=== PATIENT | female | born 1965 | race Caucasian/White ===

== ENCOUNTER 2016-10-07 19:45 | Inpatient (IN) | payer MEDICARE, OTHER ==
--- NOTE | ~2016-10-07 | HP ---
History And Physical [facility] [address] [place]. [address] NAME: JUAN MCCLOUD : 67 STATUS : ADM IN [facility]#: [id number] AGE: 51 ADM/REG DATE : 10/08/16 MR#: [id number] REPORT SERV DATE: 10/08/16 DICTATED BY: JASMYN CARVER DATE: 10/08/16 REPORT STATUS : Draft TRANSCRIBED BY: MODArvin DATE: 10/08/16 DATE OF ADMISSION: 10/08/2016 POINT OF ENTRY: [facility] Emergency Department. PRIMARY ETHYL BLENDER: Paul Duncan M.D. CHIEF COMPLAINT: Elevated blood sugar, not feeling well. 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 The patient states that since Monday night she has generally felt ill and unwell. When pressed for specifics, she states that she has felt weak with nausea, anorexia as well as occasional episodes of right-sided chest pain. The patient states that she has not eaten much over the past two days, has not checked her blood sugars over that same time period, and also has not administered any of her home insulin during the same time period, and she states that she slept most of the preceding 48 hours on and off in her recliner. When home health came to check on her this afternoon they noted her blood sugar was 565. The home health nurse administered 45 units of insulin and she presented to the emergency department. Initial evaluation in the emergency department notable for a repeat blood sugar of 285, evidence of acute on chronic kidney disease, a creatinine of 2.46. She does have small acetones in her blood as well as trace ketones in her urine as well as evidence of urinary tract infection. The patient was subsequently admitted to the Hospitalist Service for further evaluation and management. REVIEW OF SYSTEMS: Comprehensive review of systems otherwise negative unless listed in history of present illness. PREVIOUS MEDICAL HISTORY: 1. Poorly controlled insulin-dependent diabetes mellitus type 2 with associated diabetic nephropathy and retinopathy. Recent hemoglobin A1c of 8.9. 2. Chronic kidney disease, stage 3, baseline creatinine 1.3 to 1.5. 3. Hypertension. 4. Hyperlipidemia. 5. Hypothyroidism. 6. Morbid obesity. 7. Gastroesophageal reflux disease. 8. Chronic diastolic congestive heart failure. History And Physical [address] [place]. [address] NAME: JUAN MCCLOUD : 67 STATUS : ADM IN PAT#: [id number] AGE: 51 ADM/REG DATE : 10/08/16 MR#: [id number] REPORT SERV DATE: 10/08/16 DICTATED BY: JASMYN CARVER DATE: 10/08/16 REPORT STATUS : Draft TRANSCRIBED BY: DAMARI DATE: 10/08/16 9. Peripheral vascular disease. 10.Chronic anemia. 11.Lower extremity diabetic foot ulcers with osteomyelitis status post left transmetatarsal amputation. SURGICAL HISTORY: 1. Cholecystectomy. 2. Right shoulder surgery. 3. Bilateral carpal tunnel. 4. . 5. Left transmetatarsal amputation. ALLERGIES: NO KNOWN DRUG ALLERGIES. HOME MEDICATIONS: 1. Amitriptyline 25 mg q.h.s. 2. Fioricet one to two tabs b.i.d. p.r.n. 3. Vitamin C 500 mg b.i.d. 4. Aspirin 81 mg daily. 5. Baclofen 10 mg b.i.d. 6. Diltiazem ER 120 mg daily. 7. Vitamin D 50,000 units monthly. 8. Neurontin 300 mg b.i.d. 9. Vascepa 2 g b.i.d. 10.Lantus 50 units t.i.d. 11.Humalog 42 units t.i.d. 12.Humalog sliding scale. 13.Imdur 60 mg b.i.d. 14.Levothyroxine 88 mcg daily. 15.Losartan 100 mg daily. 16.Perphenazine 2 mg q.h.s. 17.Zoloft 50 mg daily. 18.Aldactone 25 mg q.h.s. 19.Vitamin E 400 units b.i.d. 20.AZO Yeast over the counter b.i.d. SOCIAL HISTORY: She denies any tobacco, alcohol, or illicits. FAMILY MEDICAL HISTORY: Notable for diabetes, heart disease, stroke, and cancer in immediate family members. LABS AND IMAGIN. White count is 10.9, hemoglobin is 12.9, hematocrit is 38.0, platelet count is 291, and INR is 1.1. 2. Sodium is 132, potassium 3.8, chloride 97, carbon dioxide 19, BUN 52, creatinine 2.46, glucose is 285, calcium is 9.6, magnesium is 2.7. Anion gap is 16. 3. Troponin less than 0.02. History And Physical [address] [address] NAME: JUAN MCCLOUD : 67 STATUS : ADM IN PAT#: [id number] AGE: 51 ADM/REG DATE : 10/08/16 MR#: [id number] REPORT SERV DATE: 10/08/16 DICTATED BY: JASMYN CARVER DATE: 10/08/16 REPORT STATUS : Draft TRANSCRIBED BY: DAMARI DATE: 10/08/16 4. Serum acetone is positive. 5. Urinalysis: Spec gravity is 1.018 turbid in appearance, large leukocyte esterase, greater than 182 white blood cell with 13 red blood cells per high-powered field with many bacteria and white blood cell clumps with trace ketones with 9 epithelial cells. 6. Chest x-ray per my review shows no acute cardiopulmonary abnormality. 7. EKG per my review shows normal sinus rhythm with no evidence of any acute ischemia or infarction. 8. ABG; pH is 7.49, pCO2 is 23, PO2 is 104, bicarb is 17, and saturating 90% on room air. PHYSICAL EXAMINATION: VITAL SIGNS: Temperature is 98.0 degrees Fahrenheit, pulse is 100, respirations 18, saturating 100% on room air, and blood pressure 120/65. On recheck, blood pressure is now 168/74, pulse of 88. GENERAL: The patient is awake and alert, in no acute distress. Resting comfortably in bed. She is a chronically ill-appearing female who is in no distress, but does appear somewhat ill. HEENT: Atraumatic and normocephalic. Dry mucous membranes. Pupils are equal, round, and reactive. No scleral icterus. NECK: No jugular venous distention. No carotid bruits. CARDIAC: Regular rate and rhythm. No murmurs, rubs, or gallops. Normal S1 and S2. LUNGS: Clear to auscultation bilaterally. No wheezes, rhonchi, or crackles. ABDOMEN: Obese, soft, nontender, and nondistended with good bowel sounds. No rebound, guarding, or rigidity. EXTREMITIES: Status post left transmetatarsal amputation with a chronic left foot wound that does not appear to have any active evidence of infection. SKIN: Warm and dry. PSYCH: Affect is withdrawn and blunted. NEURO: Alert and oriented x3. Cranial nerves 2 through 12 grossly intact. Speech is normal. Gait not assessed. ASSESSMENT AND PLAN: Ms Mccloud is a 51-year-old female with history of poorly controlled insulin-dependent diabetes mellitus type 2, who presents with a two-day history of not feeling well as well as noncompliance with her diabetic insulin regimen and found to have evidence of hyperglycemia as well as evidence of diabetic ketoacidosis. PROBLEM LIST: 1. Diabetic ketoacidosis. 2. Acute kidney injury on chronic kidney disease, stage 3. 3. Urinary tract infection. 4. Hyponatremia. 5. Chest pain. PLAN: 1. DKA. The patient meets criteria with elevated blood sugars as well as evidence of anion gap, urinary ketones as well as serum bicarb of 19, with an ABG bicarb of 17. We will place her on IV fluids as well as an insulin drip. Consult community nutrition educator for assistance as the patient readily admits to noncompliance with her scheduled insulin History And Physical [address] [address] NAME: JUAN MCCLOUD : 67 STATUS : ADM IN [facility]#: [id number] AGE: 51 ADM/REG DATE : 10/08/16 MR#: [id number] REPORT SERV DATE: 10/08/16 DICTATED BY: JASMYN CARVER DATE: 10/08/16 REPORT STATUS : Draft TRANSCRIBED BY: MODL DATE: 10/08/16 regimen. 2. Acute kidney injury on chronic kidney disease, stage 3 likely related to diabetic ketoacidosis as well as poor oral intake. Provide aggressive IV fluid hydration. Holding nephrotoxic medications including losartan and Aldactone. Checking urine lytes. 3. Urinary tract infection. Place the patient on IV Rocephin. Follow up urine culture. 4. Chest pain, appears to be atypical in nature. We will trend out cardiac enzymes. 5. DVT prophylaxis. Heparin subcu. CODE STATUS: The patient wished to be full code. JCB/MODL Jasmyn Carver MD / [id number] CC: Andrew Izquierdo DO Michael Reeves, M.D.
--- NOTE | ~2016-10-07 | DS ---
Discharge Summary [facility] [address] [place]. [address] NAME: JUAN SOLIS : 67 STATUS : DIS IN PAT#: [id number] AGE: 51 ADM/REG DATE : 10/08/16 MR#: [id number] REPORT SERV DATE: 10/13/16 DICTATED BY: JONATHAN LEBLANC DATE: 10/12/16 REPORT STATUS : Draft TRANSCRIBED BY: MODL DATE: 10/12/16 ADMISSION DATE: 10/08/2016 DISCHARGE DATE: 10/12/2016 DISCHARGE DIAGNOSES: Include: 1. Diabetic ketoacidosis, also most recent hemoglobin A1c 8.9. 2. Acute kidney injury on chronic kidney disease, resolved with most recent creatinine 1.24. 3. Urinary tract infection present on admission with culture growing Klebsiella that is treated. 4. Hypertension. 5. Hypothyroidism, most recent TSH 1.330. 6. Constipation. DISCHARGE MEDICATIONS: As follows; amitriptyline 25 mg at bedtime, vitamin C 500 mg twice a day, aspirin 81 mg daily, baclofen 10 mg twice a day, diltiazem ER 120 mg daily, vitamin D 50,000 units p.o. every 30 days, gabapentin 300 mg twice a day, Synthroid 88 mcg daily, Imdur 60 mg twice a day, Zoloft 50 mg daily, Aldactone 25 mg at bedtime, vitamin E 400 units p.o. twice a day, losartan 50 mg p.o. daily, Vascepa 1 g 2 caps p.o. twice a day, Fioricet 1 2 tablets twice a day p.r.n. for headache, Levemir insulin 50 units subcutaneously twice a day, and NovoLog insulin 28 units subcutaneously with meals. HISTORY OF PRESENT ILLNESS: This 51-year-old female with history of poorly controlled insulin-dependent diabetes, who presented with very elevated blood sugars and not feeling well. Please see initial H and P of Dr. Kei King as the patient admitted to the Hospitalist Service for further evaluation and treatment. She was found to be in DKA initially. HOSPITAL COURSE: The patient was given aggressive hydration and aggressive insulin therapy and began to have some improvement in her acidosis, her hyperglycemia, and her overall condition continued to improve. She initially had a urinalysis done as well that was abnormal on admission and this grew Klebsiella bacteria, which was treated with antibiotic Rocephin and Ancef during this admission. With numerous adjustments to her insulin, we achieved better control of her blood sugars and in review of her history in regard to her hemoglobin A1c prior in November of 2015 was 12.6, she is now down to 8.9. Have established an outpatient plan to follow up with her primary care in 10-14 days and to follow up with her traffic engineering director, Dr. Duncan in three to four weeks, which she is in agreement with, and she will be discharging home on the above medication regimen. Home Health will resume through [facility] after discharge for continued dressing changes on her prior diabetic foot ulcers in the left lower extremity. Please note greater than 30 minutes was spent on this discharge for medication teaching, followup planning, and further disposition. Discharge Summary [place] [address] [facility] [place]. [address] NAME: JUAN SOLIS : 67 STATUS : DIS IN [facility]#: [id number] AGE: 51 ADM/REG DATE : 10/08/16 MR#: [id number] REPORT SERV DATE: 10/13/16 DICTATED BY: JONATHAN LEBLANC DATE: 10/12/16 REPORT STATUS : Draft TRANSCRIBED BY: DAMARI DATE: 10/12/16 ROBIN/DAMARI Jonathan Leblanc NP / [id number] CC: Andrew Carrington DO
[~2016-10-07 19:45] MED LIST: ALIGN4 MG PO; ARANESP IV; ARANESP40 IV; ASAB PO; AUG500 PO; AZO YEAST PLUS PO; BUM1 PO; BUM2 PO; CATARACTIVE OPH; COZ50 PO; COZAAR100 MG PO; DIAM250B PO; FIORINALC PO; GLUCOPHAGE1000 MG PO; HALF81 PO; HUMALOG SC; HUMALOGPEN SC; IMDUR30 PO; IMDUR60 PO; IRON325 MG PO; L20 PO; LANTUS SC; LEVEMFLXPN; LEVEMFLXPN SC; LEVEMIR SC; LEVOTHYROXIN25 MCG PO; LEVOTHYROXIN50 MCG PO; LEVOTHYROXIN75 MCG PO; LEVOTHYROXIN88 MCG PO; LIOR10 PO; LIPITOR20 PO; MOBIC7.5 PO; NEUR300 PO; NOVOLOG SC; NOVOPEN SC; NOVOPENMIX; PCET PO; PRAVACHOL40 MG PO; PRAVACHOL80 MG PO; PRILOSEC OTC20 MG; PROBIOTIC; REG PO; SPIRO50 PO; TAZTIA X4 PO; TRADJENTA5 MG PO; TRIAVIL 2/25 TA1 TAB PO; VALTURN1 PO; VALTURNA PO; VASCEPA PO; VASCEPA1 GM PO; VITC500 PO; VITE PO; VITE200U PO; XALAT OPH; ZANTAC 150 PO; ZANTAC150 MG PO; ZOL50 PO; ZOLOFT25 MG PO
[2016-10-07 22:29] LABS: BASOPHILS 0.3 %; BASOPHILS ABSOLUTE 0.03 10/3/uL (0.0-0.16); EOSINOPHILS 1.8 %; HEMOGLOBIN 12.9 g/dL (12.0-16.0); IMMATURE GRANULOCYTES 0.3 %; IMMATURE GRANULOCYTES ABSOLUTE 0.03 10/3/uL (0.0-0.11); LYMPHOCYTES 21.1 %; LYMPHOCYTES ABSOLUTE 2.31 10/3/uL (0.67-4.30); MEAN CORPUS HGB CONC 33.9 g/dL (32.0-36.0); MEAN CORPUSCULAR HEMOGLOB 29.1 pg (26.0-34.0); MEAN CORPUSCULAR VOLUME 85.6 fL (80-100); MEAN PLATELET VOLUME 10.7 fL (9.2-13.0); MONOCYTES 4.8 %; MONOCYTES ABSOLUTE 0.53 10/3/uL (0.21-1.20); NEUTROPHILS 71.7 %; NEUTROPHILS ABSOLUTE 7.83 10/3/uL (2.02-8.40); PLATELET COUNT 291 10/3/uL (150-400); RBC DISTRIBUTION WIDTH 12.9 % (12.0-16.0); RED CELL COUNT 4.44 10/6/uL (4.0-5.6); WHITE BLOOD CELLS 10.9 10/3/uL (4.5-10.5)
[2016-10-07 22:30] LABS: MANUAL DIFF NO %
[2016-10-07 22:32] LABS: ASCORBIC ACID (UR NOT ORDER) NEG (NEG); BILIRUBIN, URINE NEGATIVE (NEG); ER URINALYSIS TAT 0 Hrs 09 Mins; KETONE, URINE TRACE MG/DL (NEG); LEUKOCYTE ESTERASE(NOT OR LARGE (NEG); NITRITE (URINE) NEG (NEG); WBC (NOT ORDERED) (RFLEX) > 182 (0-5)
[2016-10-07 22:34] LABS: ACETONE SMALL
[2016-10-07 22:36] LABS: INTERNATIONAL NORMAL RATI 1.1 UNITS (-); PARTIAL THROMBO TIME 27.6 SEC (22.5-37.2); PROTIME (NOT ORD) 13.9 SEC (12.0-14.5)
[2016-10-07 22:46] LABS: BUN (BLOOD UREA NITROGEN) 52 MG/DL (6-23); CHEST PAIN PROFILE TAT 0 Hrs 23 Mins; CHLORIDE, SERUM 97 MMOL/L (96-112); CO2 (CARBON DIOXIDE) 19 MMOL/L (24-34); POTASSIUM, SERUM 3.8 MMOL/L (3.5-5.3); SODIUM, SERUM 132 MMOL/L (135-148); TROPONIN I <0.02 NG/ML (<0.05)
[2016-10-07 22:47] LABS: CALCIUM, SERUM 9.6 MG/DL (8.5-10.4); CREATININE 2.46 MG/DL (0.55-1.02); GFR AFRICAN AMERICAN 26 ML/MIN (>=60); GFR NON AFRICAN AMERICAN 22 ML/MIN (>=60); GLUCOSE, SERUM 285 MG/DL (60-99)
[2016-10-07 23:52] LABS: ALLENS TEST Pos; BE (BASE EXCESS) -4.3 MEQ/L (0 +/- 2.5); CARBOXYHEMOGLOBIN 0.7 % (0-3); HCO3 (ACTUAL BICARBONATE) 17.3 MEQ/L (23-27); HEMOBLOGIN CONTENT 12.1 G/DL (12-16); INSTRUMENT SERIAL # 8087; O2 CONTENT 16.7 VOL% (18-24); OPERATOR ID 17589; PCO2 (CO2 TENSION) 23 MMHG (35-45); PO2 (O2 TENSION) 104 MMHG (79-93); SAMPLE Arterial; pH 7.49 (7.37-7.43)
[2016-10-08] MEDS ORDERED: NEUR300 PO (00:28)
[2016-10-08] MEDS ORDERED: SYN88 PO (00:28)
[2016-10-08] MEDS ORDERED: TAZTIA X4 PO (00:29)
[2016-10-08] MEDS ORDERED: COZAAR100 MG PO (00:29)
[2016-10-08] MEDS ORDERED: VASCEPA1 GM PO (00:29)
[2016-10-08] MEDS ORDERED: IMDUR60 PO (00:30)
[2016-10-08] MEDS ORDERED: FIORICET 50-301 EACH PO (00:31)
[2016-10-08] MEDS ORDERED: LIOR10 PO (00:31)
[2016-10-08] MEDS ORDERED: AMIT25 PO (00:31)
[2016-10-08] MEDS ORDERED: HALF81 PO (00:32)
[2016-10-08] MEDS ORDERED: ZOL50 PO (00:32)
[2016-10-08] MEDS ORDERED: VITC500 PO (00:32)
[2016-10-08] MEDS ORDERED: PERPHENAZINE4 MG PO (00:32)
[2016-10-08] MEDS ORDERED: [UNRECOGNIZED DRUG - OTHER] PO (00:33)
[2016-10-08] MEDS ORDERED: VITE PO (00:33)
[2016-10-08] MEDS ORDERED: VITD PO (00:34)
[2016-10-08] MEDS ORDERED: HUMALOGPEN SC ×2 (00:34→00:36)
[2016-10-08] MEDS ORDERED: SPIRO25 PO (00:34)
[2016-10-08] MEDS ORDERED: LANTUSCART SC (00:37)
[2016-10-08 07:12] LABS: BUN (BLOOD UREA NITROGEN) 51 MG/DL (6-23); CHLORIDE, SERUM 103 MMOL/L (96-112); CO2 (CARBON DIOXIDE) 21 MMOL/L (24-34); CREATININE 2.06 MG/DL (0.55-1.02); GFR AFRICAN AMERICAN 32 ML/MIN (>=60); GFR NON AFRICAN AMERICAN 27 ML/MIN (>=60); POTASSIUM, SERUM 3.1 MMOL/L (3.5-5.3); TROPONIN I <0.02 NG/ML (<0.05)
[2016-10-08 07:13] LABS: CALCIUM, SERUM 8.5 MG/DL (8.5-10.4); CK-MB 1.7 NG/ML; CPK 50 U/L (0-200); GLUCOSE, SERUM 153 MG/DL (60-99); SODIUM, SERUM 139 MMOL/L (135-148)
[2016-10-08 10:44] LABS: BUN (BLOOD UREA NITROGEN) 50 MG/DL (6-23); CALCIUM, SERUM 8.6 MG/DL (8.5-10.4); CHLORIDE, SERUM 105 MMOL/L (96-112); CO2 (CARBON DIOXIDE) 19 MMOL/L (24-34); CREATININE 1.97 MG/DL (0.55-1.02); GFR AFRICAN AMERICAN 34 ML/MIN (>=60); GFR NON AFRICAN AMERICAN 29 ML/MIN (>=60); GLUCOSE, SERUM 162 MG/DL (60-99); POTASSIUM, SERUM 3.5 MMOL/L (3.5-5.3); SODIUM, SERUM 139 MMOL/L (135-148)
[2016-10-08 14:59] LABS: BUN (BLOOD UREA NITROGEN) 49 MG/DL (6-23); CALCIUM, SERUM 8.5 MG/DL (8.5-10.4); CHLORIDE, SERUM 103 MMOL/L (96-112); CO2 (CARBON DIOXIDE) 22 MMOL/L (24-34); GFR AFRICAN AMERICAN 29 ML/MIN (>=60); GFR NON AFRICAN AMERICAN 25 ML/MIN (>=60); GLUCOSE, SERUM 225 MG/DL (60-99); POTASSIUM, SERUM 3.2 MMOL/L (3.5-5.3); SODIUM, SERUM 139 MMOL/L (135-148)
[2016-10-08 18:48] LABS: BUN (BLOOD UREA NITROGEN) 47 MG/DL (6-23); CALCIUM, SERUM 8.6 MG/DL (8.5-10.4); CHLORIDE, SERUM 103 MMOL/L (96-112); CO2 (CARBON DIOXIDE) 22 MMOL/L (24-34); GFR AFRICAN AMERICAN 29 ML/MIN (>=60); GFR NON AFRICAN AMERICAN 25 ML/MIN (>=60); GLUCOSE, SERUM 189 MG/DL (60-99); POTASSIUM, SERUM 3.6 MMOL/L (3.5-5.3); SODIUM, SERUM 138 MMOL/L (135-148)
[2016-10-10 04:47] LABS: BUN (BLOOD UREA NITROGEN) 30 MG/DL (6-23); CALCIUM, SERUM 8.8 MG/DL (8.5-10.4); CHLORIDE, SERUM 109 MMOL/L (96-112); CO2 (CARBON DIOXIDE) 22 MMOL/L (24-34); CREATININE 1.44 MG/DL (0.55-1.02); GFR AFRICAN AMERICAN 49 ML/MIN (>=60); GFR NON AFRICAN AMERICAN 42 ML/MIN (>=60); GLUCOSE, SERUM 141 MG/DL (60-99); POTASSIUM, SERUM 3.7 MMOL/L (3.5-5.3); SODIUM, SERUM 142 MMOL/L (135-148)
[2016-10-12 12:32] LABS: BUN (BLOOD UREA NITROGEN) 20 MG/DL (6-23); CHLORIDE, SERUM 107 MMOL/L (96-112); CO2 (CARBON DIOXIDE) 24 MMOL/L (24-34); CREATININE 1.24 MG/DL (0.55-1.02); GFR AFRICAN AMERICAN 59 ML/MIN (>=60); GFR NON AFRICAN AMERICAN 51 ML/MIN (>=60); GLUCOSE, SERUM 152 MG/DL (60-99); POTASSIUM, SERUM 4.5 MMOL/L (3.5-5.3); SODIUM, SERUM 139 MMOL/L (135-148)
[2016-10-12] MEDS ORDERED: LANTUS SC (15:56)
[2016-10-12] MEDS ORDERED: HUMALOG SC (15:57)
== END 2016-10-12 17:42 | disposition home health service (06) | DRG 638 ==
LOC: ER 19:45 → 7NO 10-08 01:31
PROVIDERS: Internal Medicine; Nurse Practitioner; Specialist
DX: E13.10 Other specified diabetes mellitus with ketoacidosis without coma (principal); N39.0 Urinary tract infection, site not specified; N17.9 Acute kidney failure, unspecified; I50.32 Chronic diastolic (congestive) heart failure; I13.0 Hypertensive heart and chronic kidney disease with heart failure and stage 1 through stage 4 chronic kidney disease, or unspecified chronic kidney disease; N18.3 Chronic kidney disease, stage 3 (moderate); Z68.41 Body mass index [BMI] 40.0-44.9, adult; N18.9 Chronic kidney disease, unspecified; E03.9 Hypothyroidism, unspecified; K59.00 Constipation, unspecified; B96.1 Klebsiella pneumoniae [K. pneumoniae] as the cause of diseases classified elsewhere; E11.621 Type 2 diabetes mellitus with foot ulcer; K21.9 Gastro-esophageal reflux disease without esophagitis; I73.9 Peripheral vascular disease, unspecified; E11.21 Type 2 diabetes mellitus with diabetic nephropathy; Z86.14 Personal history of Methicillin resistant Staphylococcus aureus infection; E11.319 Type 2 diabetes mellitus with unspecified diabetic retinopathy without macular edema; E66.01 Morbid (severe) obesity due to excess calories; D64.9 Anemia, unspecified; Z79.4 Long term (current) use of insulin; Z89.432 Acquired absence of left foot; Z90.49 Acquired absence of other specified parts of digestive tract; Z79.82 Long term (current) use of aspirin; Z83.3 Family history of diabetes mellitus; Z82.3 Family history of stroke
CPT/HCPCS: 36600; 71010; 80048; 81001; 82009; 82550; 82553; 82805; 82962; 83735; 84439; 84443; 84484; 85025; 85610; 85730; 87077; 87086; 87186; 93005; 96374; 96375; 99285; A9270-GY; J0360; J0690; J2405

== ENCOUNTER 2016-12-06 17:27 | Inpatient (IN) | payer MEDICARE, OTHER ==
--- NOTE | ~2016-12-06 | DS ---
Discharge Summary [place] [address] [place]. [address] NAME: JUAN MCCLOUD : 67 STATUS : DIS IN PAT#: [id number] AGE: 51 ADM/REG DATE : 12/07/16 MR#: [id number] REPORT SERV DATE: 12/10/16 DICTATED BY: SARAH ONEAL DATE: 12/09/16 REPORT STATUS : Draft TRANSCRIBED BY: MODArvin DATE: 12/09/16 ADMISSION DATE: 12/07/2016 DISCHARGE DATE: 12/09/2016 The patient was admitted to the Hospitalist Service. CONSULTANTS: Lyndon Arredondo M.D., General Surgery. DISCHARGE DIAGNOSES: 1. Urinary tract infection. 2. Acute kidney injury on chronic kidney disease. 3. Diabetes mellitus type 2, uncontrolled with hyperglycemia. 4. Hypotension, resolved. 5. Left foot wound transmetatarsal amputation site, followed by Dr. Arredondo. PROCEDURES: None. IMAGING AND DIAGNOSTICS: 12/06/2016 chest x-ray, PA and lateral, revealed no acute cardiopulmonary abnormality. LABORATORY STUDIES: 1. 12/09/2016: Discharge basic metabolic panel revealed sodium 141, potassium 4.8, chloride 111, CO2 of 21, BUN 26, creatinine 1.59, GFR 37, glucose 200, and calcium 8.8. 2. 12/09/2016: CBC revealed a white count of 6.1, hemoglobin 10.4, hematocrit 32.5, and platelets 237. 3. Hemoglobin A1c 14.4. 4. Urinalysis on 12/06/2016 revealed 100 proteins, greater than 500 glucose, moderate blood, large leukocyte esterase. The microscopic showed 50 rbc's, greater than 182 wbc's, many wbc clumps, and many bacteria. 5. Urine culture revealed approximately 100,000 per mL of urine. Organism identified, Klebsiella pneumoniae. HISTORY OF PRESENT ILLNESS: For complete history, please refer to admission H and P by Dr. Louie Head on 12/07/2016. Briefly, Ms. Mccloud is a 51-year-old obese female who was sent to the emergency room by her home health nurse secondary to a blood glucose reading of 570 at her home. Ms. Mccloud in the emergency room admitted that she had been having decreased appetite, lightheadedness, and some orthostatic symptoms for the few days prior to her admission. The hospitalists were asked to admit Ms. Mccloud for further evaluation and treatment. HOSPITAL COURSE: Ms. Mccloud was admitted to a med/surg telemetry bed. She was given IV fluids and covered initially with IV Zosyn and IV vancomycin secondary to her history of Pseudomonas and MRSA. She was provided with her home insulin, basal insulin, and sliding scale NovoLog for correction at mealtime. A Wound Care consult was requested with the wound care nurse initially; however, after I assessed Ms. Mccloud's left foot, I asked Dr. Arredondo to come see her as she is followed by him every two weeks at the wound care center. Upon Discharge Summary [address] [address] NAME: JUAN MCCLOUD : 67 STATUS : DIS IN [facility]#: [id number] AGE: 51 ADM/REG DATE : 12/07/16 MR#: [id number] REPORT SERV DATE: 12/10/16 DICTATED BY: SARAH ONEAL DATE: 12/09/16 REPORT STATUS : Draft TRANSCRIBED BY: DAMARI DATE: 12/09/16 admission, Ms. Mccloud's home medications were continued with the exception of her spironolactone and her losartan as she had an initial creatinine of 2.72 in the emergency room. Her hypotension resolved; however, she remained orthostatic with a blood pressure lying of 131/61, sitting 135/58, and standing 95/51. Her left foot TMA site had a large scab that was oozing scant amount of serosanguineous drainage. There was erythema around the entire TMA site and she did have tenderness to the plantar surface upon palpation. Her vital signs were stable. Blood pressure 134/64, O2 saturation was 96% on 2 L, and the urine culture was pending. She was continued on IV antibiotics and IV normal saline. On 12/08/2016, she was seen by the nurses educator who reinforced her need for continued blood glucose monitoring and taking her insulin on a regular basis. The patient had complaints of poor appetite, just not being hungry, so therefore, she was not taking any of her insulin. On 12/08/2016, she was in no acute distress, denied any symptoms. She was voiding without difficulty, had a bowel movement, and her creatinine was coming down nicely; on this date, it was 1.81. Her blood glucose in the morning was 170, which was responding well to her insulin after levels of 211, 329, 316, and 361 the prior day. Blood pressure was in the 130s systolically without her losartan. Her A1c came back at 14.4 on this date. Mealtime insulin was added to her insulin regimen and sliding scale was decreased to a level 2 from level 3. Her IV fluids were continued at 50 mL/h. On 12/09/2016, she was no longer orthostatic. Her vital signs were, lying 143/64, pulse 68, sitting 145/67 with a pulse of 73 and standing blood pressure was 140/61, pulse was 86. Her urine culture came back with Klebsiella. She remained asymptomatic. Her IV antibiotics were discontinued and she was changed to Duricef 500 mg p.o. b.i.d. to begin tomorrow on 12/10/2016 as she received her IV vancomycin and Zosyn today earlier. With no new complaints and basically stable status and her creatinine coming down to 1.59 early this morning, her IV fluids were discontinued. Her blood sugars today this morning before breakfast [address] and at lunchtime 177. Dr. Arredondo did recommend surgical sandal/shoe for both feet for Ms. Mccloud. He also recommended wound care to the left foot TMA site and Mepilex to the right foot with Tubigrips bilaterally and moisture cream to both of her feet. Therefore, with no symptoms and vital signs stable and home healthcare already arranged, it was felt that Ms. Mccloud could be discharged home safely on this date. Therefore, on the evening of 12/09/2016, she was in fact discharged home with [facility] to follow. DISCHARGE INSTRUCTIONS: 1. Diet: An 1800-calorie ADA diet is recommended. 2. Activity as tolerated with no weightbearing to the left lower extremity per Dr. Arredondo. Ms. Mccloud does have a knee walker at home as well as a wheelchair. DISCHARGE MEDICATIONS: 1. Elavil 25 mg p.o. daily at bedtime. 2. Lipitor 80 mg p.o. daily at bedtime. 3. Baclofen 10 mg p.o. b.i.d. 4. Diltiazem ER 120 mg p.o. b.i.d. 5. Zantac 150 mg p.o. daily. 6. Neurontin 300 mg p.o. b.i.d. 7. Lantus 50 units subcu b.i.d. Discharge Summary [address] [address] NAME: JUAN MCCLOUD : 67 STATUS : DIS IN PAT#: [id number] AGE: 51 ADM/REG DATE : 12/07/16 MR#: [id number] REPORT SERV DATE: 12/10/16 DICTATED BY: SARAH ONEAL DATE: 12/09/16 REPORT STATUS : Draft TRANSCRIBED BY: DAMRAI DATE: 12/09/16 8. Imdur 60 mg p.o. b.i.d. 9. Synthroid 88 mcg p.o. daily, 30 minutes before breakfast. 10.Perphenazine 4 mg p.o. daily at bedtime. 11.Zoloft 50 mg p.o. daily. 12.Losartan 100 mg p.o. daily. 13.Fioricet 1-2 tabs p.o. p.r.n. headache. 14.Vitamin C 500 mg p.o. b.i.d. 15.Vascepa 1 g p.o. daily. 16.Duricef 500 mg p.o. b.i.d. for two more days, prescription provided. OTHER DISCHARGE INSTRUCTIONS: Include Ms. Mccloud will follow up with her primary care provider, Dr. Joo Reza, in seven to ten days. I have encouraged Ms. Mccloud to discuss the possibility of gastroparesis with her primary care provider and recommend further outpatient testing for this. Again, she is discharged home today with [facility] for medicine management, diabetes education, and reinforcement of taking her insulin as prescribed. I have also instructed the patient to keep a blood pressure diary and take it with her to her followup appointment with Dr. Reza. In addition, I have asked Ms. Mccloud to have lab work done at her followup appointment with Dr. Reza in seven to ten days. A prescription is provided for a basic metabolic panel to follow up on her acute kidney injury with chronic kidney disease. FRANKLIN/DAMARI Faye Oneal, [facility]- / [id number] CC: Andrew Carrington DO John McCarley, M.D.
--- NOTE | ~2016-12-06 | HP ---
History And Physical [address] [place]. [address] NAME: JUAN SOLIS : 67 STATUS : ADM IN [facility]#: [id number] AGE: 51 ADM/REG DATE : 12/07/16 MR#: [id number] REPORT SERV DATE: 12/07/16 DICTATED BY: KHUSHBU MARQUEZ DATE: 12/07/16 REPORT STATUS : Draft TRANSCRIBED BY: MODL DATE: 12/07/16 DATE OF ADMISSION: 12/07/2016 CHIEF COMPLAINT: A 51-year-old female with chronic poorly controlled diabetes, now presenting with evidence of urinary tract infection and hypotension. HISTORY OF PRESENT ILLNESS: The patient's history was obtained through an interview with the patient, coupled with review of [facility] medical records. The patient states that for a few days she has been having orthostatic symptoms, decreased appetite, and lightheadedness. She admits that she has felt so ill that she has not been taking her insulin regularly or checking her blood sugars. [facility] came to visit her today and noticed a blood sugar of 570 directing her to come to the emergency department. She does have chronic left foot pain related to an ulceration from a stump from previous amputation, it has an aching quality discomfort, 5/10 severity. No dysuria. No urinary frequency. No diarrhea. No shortness of breath. No chest pain. No cough. No fevers or chills. No confusion. REVIEW OF SYSTEMS: Otherwise, a 14-point review of systems was obtained and was negative. PAST MEDICAL HISTORY: 1. Diabetes with neuropathy, retinopathy, bilateral eye blindness nephropathy, seen by Dr. Paul Duncan. 2. Diastolic congestive heart failure. 3. Hypertension. 4. Chronic kidney disease, stage 3. Baseline creatinine of 1.3 to 1.5. 5. Hypothyroidism. 6. Anemia seen by Dr. Mcneal with Epogen shots. 7. Gastroesophageal reflux disorder. 8. Elevated cholesterol. 9. Recurrent foot infections with osteomyelitis, diabetic foot ulcers, cellulitis, and history of partial foot amputation. 10.MRSA and Pseudomonas. 11.Fatty liver disease with splenomegaly. 12.Hilar and mediastinal lymphadenopathy. 13.Urinary tract infections. PAST SURGICAL HISTORY: 1. Cholecystectomy. 2. Right shoulder surgery. History And Physical [address] [address] NAME: JUAN SOLIS : 67 STATUS : ADM IN PAT#: [id number] AGE: 51 ADM/REG DATE : 12/07/16 MR#: [id number] REPORT SERV DATE: 12/07/16 DICTATED BY: KHUSHBU MARQUEZ DATE: 12/07/16 REPORT STATUS : Draft TRANSCRIBED BY: DAMARI DATE: 12/07/16 3. . 4. Left foot amputation x3. 5. Bilateral carpal tunnel release. ALLERGIES: NO KNOWN DRUG ALLERGIES. SOCIAL HISTORY: Lives in [place], [place], with daughter. She is disabled. No tobacco abuse. No alcohol abuse. Became a in 2013, when her from cancer. FAMILY HISTORY: Diabetes, stroke, cancer, and heart disease. CURRENT MEDICATIONS: 1. Elavil 25 mg p.o. q.h.s. 2. Fioricet p.r.n. 3. Vitamin C. 4. Lipitor 80 mg p.o. daily. 5. Baclofen 10 mg p.o. b.i.d. 6. Diltiazem extended release 120 mg p.o. b.i.d. 7. Vitamin D. 8. Neurontin 300 mg p.o. b.i.d. 9. Vascepa 1 g capsule daily. 10.Lantus 50 units subcutaneous twice a day, sliding-scale insulin. 11.Isosorbide mononitrate 60 mg p.o. b.i.d. 12.Synthroid 88 mcg p.o. daily. 13.Cozaar 100 mg p.o. daily. 14.Probiotics. 15.Perphenazine 4 mg at bedtime. 16.Zantac 150 mg p.o. daily. 17.Zoloft 50 mg p.o. daily. 18.Aldactone 25 mg p.o. daily. 19.Vitamin E. 20.Yeast supplement. PHYSICAL EXAMINATION: VITAL SIGNS: Temperature 97.8, pulse 92, blood pressure 99/58, respiratory rate 16, and O2 saturation 97% on room air. GENERAL: A chronically ill-appearing female, but in no evidence of acute distress. HEENT: Pupils equal, round, and reactive to light. No conjunctival pallor. No scleral icterus. Nares are patent. Oropharynx is clear of obstruction. Very dry mucous membranes with cracking of the lips. NECK: Trachea midline. No thyromegaly. LYMPH: No cervical lymphadenopathy. No supraclavicular lymphadenopathy. No inguinal lymphadenopathy. RESPIRATORY: Clear to auscultation at bases. No wheezes, rales, or rhonchi. Normal respiratory effort. CARDIOVASCULAR: Regular rate and rhythm. No murmurs, rubs, or gallops. No current History And Physical [address] [address] NAME: JUAN SOLIS : 67 STATUS : ADM IN PAT#: [id number] AGE: 51 ADM/REG DATE : 12/07/16 MR#: [id number] REPORT SERV DATE: 12/07/16 DICTATED BY: KHUSHBU MARQUEZ DATE: 12/07/16 REPORT STATUS : Draft TRANSCRIBED BY: DAMARI DATE: 12/07/16 extremity edema is appreciated. ABDOMEN: Completely soft, nontender, and nondistended. No hepatosplenomegaly. DERMATOLOGICAL: Warm and dry extremities. No pallor. No cyanosis. The patient's left chronic diabetic foot ulcer at her stump appears stable without any erythema, heat, swelling, tenderness, purulence or drainage. PSYCHIATRIC: Flat affect. Irritable mood. Alert and oriented x3. LABORATORY DATA: White blood cell count 9.2, hemoglobin 12, hematocrit 36, and platelets 282. Sodium 134, potassium 4.4, chloride 99, bicarb 25, BUN 43, creatinine 2.72 from baseline creatinine of 1.2, and glucose 228. Urinalysis shows large leukocyte esterase, greater than 182 white blood cells, 18 hyaline casts. INR 1.1. Troponin negative. STUDIES: 1. Chest x-ray by my own evaluation shows no acute cardiopulmonary process. 2. EKG by my own evaluation shows sinus rhythm, no major abnormalities. ASSESSMENT AND PLAN: 1. Urinary tract infection. Check urine culture. Cover with IV Zosyn, IV vancomycin with history of Pseudomonas and MRSA. 2. Acute kidney injury. Place on IV fluids. 3. Uncontrolled diabetes. Continue basal insulin, sliding scale insulin. The patient admits to poor compliance. 4. Hypotension with orthostasis. Place on IV fluids. 5. Left foot ulcer. Obtain a Wound Care consult. GEOVANYL/YASMINL Khushbu Marquez M.D. / [id number] CC: Andrew Schultz DO Michael Reeves, M.D.
[~2016-12-06 17:27] MED LIST changes: +AMIT25 PO; +FIORICET 50-301 EACH PO; +LANTUSCART SC; +PERPHENAZINE4 MG PO; +SPIRO25 PO; +SYN88 PO; +VITD PO; +[UNRECOGNIZED DRUG - OTHER] PO
[2016-12-06 20:17] LABS: BASOPHILS 0.2 %; BASOPHILS ABSOLUTE 0.02 10/3/uL (0.0-0.16); EOSINOPHILS 2.5 %; EOSINOPHILS ABSOLUTE 0.23 10/3/uL (0.0-0.53); ER CBC TAT 0 Hrs 09 Mins; HEMATOCRIT 36.2 % (36.0-48.0); HEMOGLOBIN 12.2 g/dL (12.0-16.0); IMMATURE GRANULOCYTES 0.1 %; IMMATURE GRANULOCYTES ABSOLUTE 0.01 10/3/uL (0.0-0.11); LYMPHOCYTES 28.6 %; LYMPHOCYTES ABSOLUTE 2.63 10/3/uL (0.67-4.30); MEAN CORPUS HGB CONC 33.7 g/dL (32.0-36.0); MEAN CORPUSCULAR HEMOGLOB 28.8 pg (26.0-34.0); MEAN CORPUSCULAR VOLUME 85.4 fL (80-100); MEAN PLATELET VOLUME 10.2 fL (9.2-13.0); MONOCYTES 6.3 %; MONOCYTES ABSOLUTE 0.58 10/3/uL (0.21-1.20); NEUTROPHILS 62.3 %; NEUTROPHILS ABSOLUTE 5.73 10/3/uL (2.02-8.40); PLATELET COUNT 283 10/3/uL (150-400); RED CELL COUNT 4.24 10/6/uL (4.0-5.6); WHITE BLOOD CELLS 9.2 10/3/uL (4.5-10.5)
[2016-12-06 20:18] LABS: MANUAL DIFF NO %
[2016-12-06 20:26] LABS: INTERNATIONAL NORMAL RATI 1.1 UNITS (-); PARTIAL THROMBO TIME 28.6 SEC (22.5-37.2); PROTIME (NOT ORD) 13.8 SEC (12.0-14.5)
[2016-12-06 20:33] LABS: BUN (BLOOD UREA NITROGEN) 43 MG/DL (6-23); CALCIUM, SERUM 10.4 MG/DL (8.5-10.4); CHEST PAIN PROFILE TAT 0 Hrs 25 Mins; CHLORIDE, SERUM 99 MMOL/L (96-112); CO2 (CARBON DIOXIDE) 25 MMOL/L (24-34); CREATININE 2.72 MG/DL (0.55-1.02); GFR AFRICAN AMERICAN 23 ML/MIN (>=60); GFR NON AFRICAN AMERICAN 20 ML/MIN (>=60); GLUCOSE, SERUM 228 MG/DL (60-99); POTASSIUM, SERUM 4.4 MMOL/L (3.5-5.3); SODIUM, SERUM 134 MMOL/L (135-148); TROPONIN I <0.02 NG/ML (<0.05)
[2016-12-07] MEDS ORDERED: LIPITOR80 MG PO (00:01)
[2016-12-07] MEDS ORDERED: ALIGN4 MG PO (00:02)
[2016-12-07] MEDS ORDERED: ZANTAC 150 PO (00:02)
[2016-12-07 00:11] LABS: ASCORBIC ACID (UR NOT ORDER) NEG (NEG); BILIRUBIN, URINE NEGATIVE (NEG); ER URINALYSIS TAT 0 Hrs 00 Mins; KETONE, URINE NEGATIVE (NEG); LEUKOCYTE ESTERASE(NOT OR LARGE (NEG); NITRITE (URINE) NEG (NEG)
[2016-12-07 00:13] LABS: WBC (NOT ORDERED) (RFLEX) > 182 (0-5)
[2016-12-07 10:39] LABS: BASOPHILS 0.2 %; BASOPHILS ABSOLUTE 0.02 10/3/uL (0.0-0.16); EOSINOPHILS 2.5 %; HEMOGLOBIN 10.3 g/dL (12.0-16.0); IMMATURE GRANULOCYTES 0.2 %; IMMATURE GRANULOCYTES ABSOLUTE 0.02 10/3/uL (0.0-0.11); LYMPHOCYTES 27.9 %; LYMPHOCYTES ABSOLUTE 2.27 10/3/uL (0.67-4.30); MEAN CORPUS HGB CONC 33.7 g/dL (32.0-36.0); MEAN CORPUSCULAR HEMOGLOB 28.8 pg (26.0-34.0); MEAN CORPUSCULAR VOLUME 85.5 fL (80-100); MEAN PLATELET VOLUME 10.3 fL (9.2-13.0); MONOCYTES 6.9 %; MONOCYTES ABSOLUTE 0.56 10/3/uL (0.21-1.20); NEUTROPHILS 62.3 %; NEUTROPHILS ABSOLUTE 5.08 10/3/uL (2.02-8.40); PLATELET COUNT 253 10/3/uL (150-400); RBC DISTRIBUTION WIDTH 14.3 % (12.0-16.0); RED CELL COUNT 3.58 10/6/uL (4.0-5.6); WHITE BLOOD CELLS 8.2 10/3/uL (4.5-10.5)
[2016-12-07 10:40] LABS: HEMATOCRIT 30.6 % (36.0-48.0); MANUAL DIFF NO %
[2016-12-07 10:45] LABS: INTERNATIONAL NORMAL RATI 1.1 UNITS (-); PARTIAL THROMBO TIME 26.7 SEC (22.5-37.2); PROTIME (NOT ORD) 13.6 SEC (12.0-14.5)
[2016-12-07 10:56] LABS: B NATRIURETIC PEPTIDE (BNP) 19.9 PG/ML (< 100.0)
[2016-12-07 11:00] LABS: A/G RATIO 0.6 (0.7-1.9); ALBUMIN 2.6 G/DL (3.5-5.0); ALKALINE PHOSPHATASE 102 U/L (45-117); BUN (BLOOD UREA NITROGEN) 44 MG/DL (6-23); CALCIUM, SERUM 8.7 MG/DL (8.5-10.4); CHLORIDE, SERUM 101 MMOL/L (96-112); CO2 (CARBON DIOXIDE) 23 MMOL/L (24-34); CREATININE 2.45 MG/DL (0.55-1.02); GFR AFRICAN AMERICAN 26 ML/MIN (>=60); GFR NON AFRICAN AMERICAN 22 ML/MIN (>=60); GLOBULIN 4.7 G/DL (2.5-4.1); GLUCOSE, SERUM 311 MG/DL (60-99); POTASSIUM, SERUM 4.2 MMOL/L (3.5-5.3); SGOT(AST) 11 U/L (5-40); SGPT(ALT) 10 U/L (5-65); SODIUM, SERUM 135 MMOL/L (135-148); TOTAL BILIRUBIN 0.2 MG/DL (0-1.2); TOTAL PROTEIN 7.3 G/DL (6.0-8.5); TROPONIN I <0.02 NG/ML (<0.05)
[2016-12-07 22:41] LABS: GLYCOHEMOGLOBIN (HbA1c) 14.4 % (4.7-6.1)
[2016-12-08 05:56] LABS: BASOPHILS 0.4 %; BASOPHILS ABSOLUTE 0.02 10/3/uL (0.0-0.16); EOSINOPHILS 4.3 %; EOSINOPHILS ABSOLUTE 0.24 10/3/uL (0.0-0.53); HEMATOCRIT 29.7 % (36.0-48.0); HEMOGLOBIN 9.8 g/dL (12.0-16.0); IMMATURE GRANULOCYTES 0.2 %; IMMATURE GRANULOCYTES ABSOLUTE 0.01 10/3/uL (0.0-0.11); LYMPHOCYTES 34.4 %; MEAN CORPUSCULAR HEMOGLOB 28.8 pg (26.0-34.0); MEAN CORPUSCULAR VOLUME 87.4 fL (80-100); MEAN PLATELET VOLUME 10.2 fL (9.2-13.0); MONOCYTES 7.2 %; NEUTROPHILS 53.5 %; NEUTROPHILS ABSOLUTE 2.96 10/3/uL (2.02-8.40); PLATELET COUNT 223 10/3/uL (150-400); RBC DISTRIBUTION WIDTH 14.1 % (12.0-16.0); WHITE BLOOD CELLS 5.5 10/3/uL (4.5-10.5)
[2016-12-08 05:59] LABS: MANUAL DIFF NO %
[2016-12-08 06:02] LABS: ALBUMIN 2.4 G/DL (3.5-5.0); CALCIUM, SERUM 8.5 MG/DL (8.5-10.4); CHLORIDE, SERUM 109 MMOL/L (96-112); CO2 (CARBON DIOXIDE) 21 MMOL/L (24-34); PHOSPHORUS, SERUM 3.4 MG/DL (2.5-4.5); POTASSIUM, SERUM 4.3 MMOL/L (3.5-5.3); SODIUM, SERUM 140 MMOL/L (135-148)
[2016-12-08 06:10] LABS: BUN (BLOOD UREA NITROGEN) 39 MG/DL (6-23); CREATININE 1.81 MG/DL (0.55-1.02); GFR AFRICAN AMERICAN 37 ML/MIN (>=60); GFR NON AFRICAN AMERICAN 32 ML/MIN (>=60); GLUCOSE, SERUM 183 MG/DL (60-99)
[2016-12-09 08:57] LABS: BASOPHILS 0.5 %; BASOPHILS ABSOLUTE 0.03 10/3/uL (0.0-0.16); EOSINOPHILS 3.9 %; EOSINOPHILS ABSOLUTE 0.24 10/3/uL (0.0-0.53); HEMATOCRIT 32.5 % (36.0-48.0); HEMOGLOBIN 10.4 g/dL (12.0-16.0); LYMPHOCYTES 34.8 %; LYMPHOCYTES ABSOLUTE 2.12 10/3/uL (0.67-4.30); MANUAL DIFF NO %; MEAN CORPUSCULAR HEMOGLOB 28.3 pg (26.0-34.0); MEAN CORPUSCULAR VOLUME 88.6 fL (80-100); MONOCYTES 6.7 %; MONOCYTES ABSOLUTE 0.41 10/3/uL (0.21-1.20); NEUTROPHILS 54.1 %; PLATELET COUNT 237 10/3/uL (150-400); RBC DISTRIBUTION WIDTH 14.2 % (12.0-16.0); RED CELL COUNT 3.67 10/6/uL (4.0-5.6); WHITE BLOOD CELLS 6.1 10/3/uL (4.5-10.5)
[2016-12-09 09:18] LABS: CALCIUM, SERUM 8.8 MG/DL (8.5-10.4); CHLORIDE, SERUM 111 MMOL/L (96-112); CO2 (CARBON DIOXIDE) 21 MMOL/L (24-34); CREATININE 1.59 MG/DL (0.55-1.02); GFR AFRICAN AMERICAN 43 ML/MIN (>=60); GFR NON AFRICAN AMERICAN 37 ML/MIN (>=60); GLUCOSE, SERUM 200 MG/DL (60-99); POTASSIUM, SERUM 4.8 MMOL/L (3.5-5.3); SODIUM, SERUM 141 MMOL/L (135-148)
[2016-12-09 09:20] LABS: BUN (BLOOD UREA NITROGEN) 26 MG/DL (6-23)
[2016-12-09] MEDS ORDERED: DURICEF PO (18:11)
== END 2016-12-09 18:40 | disposition home health service (06) | DRG 689 ==
LOC: ER 17:27 → 5SO 12-07 01:18
PROVIDERS: Hospitalist; Internal Medicine; Nurse Practitioner; Specialist
DX: N39.0 Urinary tract infection, site not specified (principal); N17.0 Acute kidney failure with tubular necrosis; I50.32 Chronic diastolic (congestive) heart failure; I13.0 Hypertensive heart and chronic kidney disease with heart failure and stage 1 through stage 4 chronic kidney disease, or unspecified chronic kidney disease; E11.21 Type 2 diabetes mellitus with diabetic nephropathy; E11.65 Type 2 diabetes mellitus with hyperglycemia; E11.621 Type 2 diabetes mellitus with foot ulcer; Z79.4 Long term (current) use of insulin; I95.1 Orthostatic hypotension; E11.319 Type 2 diabetes mellitus with unspecified diabetic retinopathy without macular edema; N18.3 Chronic kidney disease, stage 3 (moderate); E11.22 Type 2 diabetes mellitus with diabetic chronic kidney disease; E03.9 Hypothyroidism, unspecified; K21.9 Gastro-esophageal reflux disease without esophagitis; E78.00 Pure hypercholesterolemia, unspecified; K76.0 Fatty (change of) liver, not elsewhere classified; E66.9 Obesity, unspecified; Z87.01 Personal history of pneumonia (recurrent); Z79.899 Other long term (current) drug therapy; Z90.49 Acquired absence of other specified parts of digestive tract; Z98.890 Other specified postprocedural states; Z68.39 Body mass index [BMI] 39.0-39.9, adult; Z89.432 Acquired absence of left foot
CPT/HCPCS: 71020; 80048; 80053; 80069; 80202; 81001; 82962; 83036; 83735; 83880; 84443; 84484; 85025; 85610; 85730; 87077; 87086; 87186; 93005; 99285; A9270-GY; J2543; J3370

== ENCOUNTER 2016-12-21 19:58 | Observation (INO) | payer MEDICARE, OTHER ==
--- NOTE | ~2016-12-21 | DS ---
Discharge Summary [facility] [address] [place]. [address] NAME: JUAN SOLIS : 67 STATUS : DIS Hemant PAT#: [id number] AGE: 51 ADM/REG DATE : 12/21/16 MR#: [id number] REPORT SERV DATE: 12/23/16 DICTATED BY: JR. CHAIREZ WILLIAM JOHN DATE: 12/22/16 REPORT STATUS : Draft TRANSCRIBED BY: DAMARI DATE: 12/22/16 ADMISSION DATE: 12/21/2016 DISCHARGE DATE: 12/22/2016 DISCHARGE DIAGNOSES: Include: 1. Uncontrolled diabetes mellitus with a recent hemoglobin A1c of 14.4. 2. Acute kidney injury secondary to poor glycemic control with a baseline creatinine of 1.3-1.8. 3. Left foot ulcer after a prior transmetatarsal amputation. 4. Chronic diastolic heart failure. OPERATIONS/PROCEDURES AND TREATMENTS: Include none. DISCHARGE MEDICATIONS: Include: 1. Elavil 25 mg orally daily. 2. Vitamin C 500 mg orally twice a day. 3. Aspirin 81 mg orally daily. 4. Lipitor 80 mg orally daily. 5. Baclofen 10 mg orally twice a day. 6. Cefadroxil 500 b.i.d. for seven days, started 12/21/2016. 7. Diltiazem ER 120 mg orally twice a day. 8. Vitamin D 50,000 units every month. 9. Zantac 150 mg orally daily. 10.Neurontin 300 mg orally three times a day. 11.Lantus insulin 50 units twice a day. 12.Premeal NovoLog 20 units plus sliding scale level 2. 13.Imdur 60 mg orally twice a day. 14.Synthroid 88 mcg orally daily. 15.Cozaar 100 mg orally daily. 16.Reglan 5 mg orally three times a day. 17.Perphenazine 4 mg orally at bedtime. 18.Zoloft 100 mg orally daily. 19.Sodium bicarbonate 650 mg orally twice a day. 20.Vescepa 2 g orally twice a day. 21.Aldactone 25 mg orally daily. 22.AZO one capsule twice a day. 23.Vitamin E 400 international units daily. 24.Essex 7.5/325 one tablet every eight hours as needed. HOSPITAL COURSE: The patient is a 51-year-old female with poorly controlled diabetes. She is quite noncompliant and presented to the emergency room with uncontrolled diabetes. The patient had a recent left transmetatarsal amputation back in September and this is healed poorly. She does describe pain in the foot. She went to her primary care physician and found that her blood sugar was over 600 and he directed her to the emergency room. The patient did admit to not taking her insulin. She also says that when she does not eat, she sometimes just does not take it. Initial exam was significant for temperature 98.1, heart Discharge Summary [facility] [address] [place]. [address] NAME: JUAN SOLIS : 67 STATUS : DIS Hemant PAT#: [id number] AGE: 51 ADM/REG DATE : 12/21/16 MR#: [id number] REPORT SERV DATE: 12/23/16 DICTATED BY: JR. CHAIREZ WILLIAM JOHN DATE: 12/22/16 REPORT STATUS : Draft TRANSCRIBED BY: DAMARI DATE: 12/22/16 rate 85, blood pressure of 138/85, respiratory rate of 16. Exam was remarkable for morbid obesity and her left foot with some erythema, but no heat. No significant ulceration or fluctuance. Laboratory was significant for a BUN of 47, creatinine of 2.2, glucose of 456. Of note, her baseline creatinine is between 1.3 and 1.8. The patient was admitted to the Clinical Decision Unit. She was placed back on her home Lantus, premeal NovoLog, and NovoLog regimen and had glycemic control in the 90-200 range on this regimen. I impressed upon the patient the importance of good glycemic control. She seemed somewhat dismissive of this talk. She was given IV fluids. Her Aldactone was held briefly. Her renal function returned to baseline with IV fluids. She will be discharged home today, 12/22/2016 to followup with her primary care physician, Dr. Reza as well as her sr vice president, Dr. Duncan. For discharge exam and laboratory, please see daily progress note. DISCHARGE DIET: ADA diet. ACTIVITY: As tolerated. ZOHAIB/DAMARI Santi Chairez Jr, MD / [id number] CC: Santi Chairez Jr, MD Owen F. Speer, DO
--- NOTE | ~2016-12-21 | HP ---
History And Physical [facility] [address] [place]. [address] NAME: JUAN SOLIS : 67 STATUS : ADM Hemant PAT#: [id number] AGE: 51 ADM/REG DATE : 12/21/16 MR#: [id number] REPORT SERV DATE: 12/22/16 DICTATED BY: KHUSHBU MARQUEZ DATE: 12/22/16 REPORT STATUS : Draft TRANSCRIBED BY: MODL DATE: 12/22/16 DATE OF ADMISSION: 12/21/2016 CHIEF COMPLAINT: A 51-year-old female presenting with uncontrolled diabetes. HISTORY OF PRESENTING ILLNESS: The patient's history was obtained through careful interview with the patient and mother, coupled with review of [facility] medical records. The patient was hospitalized earlier in 2017 with recurrent diabetic foot infection, ulceration, and a ventral left foot partial amputation. She has been followed by home healthcare and seems to be recovering well from this. She does describe persistent left foot discomfort, aching throbbing quality, 5/10 severity. The patient admits that at times, she will not take insulin or does not check her blood sugars if she does not have much of an appetite and she states that her blood sugars can range anywhere from 70 to greater than 600, but her blood sugars will often be quite elevated despite taking her insulin intermittently. She went to see her primary care physician on the day leading up to this admission just for a general followup and he found that her blood sugar was greater than 600 and so redirected her to the emergency department for further evaluation. REVIEW OF SYSTEMS: A 14-point review of systems was obtained. Here are some of the pertinent positives and negatives. The patient states that she has had good foot healing and no other rashes. She has had no weight loss or weight gain. No fevers or chills. No headache. She is chronically blind. Had no eye pain. No dry mouth. No polyuria. No polydipsia. No shortness of breath. No chest pain. No lower extremity edema. No cough. No diarrhea. No nausea or vomiting. No change in urine habit at all. She has had intermittent lightheadedness and generalized weakness, but these seem to be somewhat chronic complaints. Otherwise, 14-point review of systems was obtained and was negative. PAST MEDICAL HISTORY: 1. Diabetes with neuropathy, retinopathy, and central blindness with nephropathy as well, seen by Dr. Paul Duncan with most recent hemoglobin A1c of 14.4, 12/07/2016. 2. Diastolic congestive heart failure. 3. Neuropathy. 4. Anemia, seen by Dr. Mcneal with Epogen shots. 5. Hypertension. 6. Chronic kidney disease stage 3. Baseline creatinine of 1.3 to 1.5. 7. Gastroesophageal reflux disorder. 8. Elevated cholesterol. 9. Foot infections with osteomyelitis, diabetic ulcer, cellulitis, and foot amputation. 10.MRSA and Pseudomonas. 11.Fatty liver disease with splenomegaly. 12.Hilar and mediastinal lymphadenopathy. History And Physical [address] [address] NAME: JUAN SOLIS : 67 STATUS : ADM Hemant PAT#: [id number] AGE: 51 ADM/REG DATE : 12/21/16 MR#: [id number] REPORT SERV DATE: 12/22/16 DICTATED BY: KHUSHBU MARQUEZ DATE: 12/22/16 REPORT STATUS : Draft TRANSCRIBED BY: DAMARI DATE: 12/22/16 13.Urinary tract infections. PAST SURGICAL HISTORY: 1. Multiple left partial foot amputations. 2. Cholecystectomy. 3. Right shoulder surgery. 4. . 5. Bilateral carpal tunnel release. ALLERGIES: NO KNOWN DRUG ALLERGIES. SOCIAL HISTORY: No tobacco abuse. No alcohol abuse. Lives in [place], [place]. Lives with an 18-year-old daughter. The patient is on disability. She has been a since 2013. FAMILY HISTORY: Diabetes and hypertension. CURRENT MEDICATIONS: Include Elavil 25 mg p.o. q.h.s., vitamin C, aspirin 81 mg p.o. daily, Lipitor 80 mg p.o. daily, baclofen 10 mg p.o. b.i.d., Duricef 500 mg p.o. b.i.d., diltiazem extended release 120 mg p.o. b.i.d., vitamin D, Neurontin 300 mg p.o. t.i.d., hydrocodone p.r.n., Vascepa 2 g p.o. b.i.d., Lantus 50 units subcutaneous twice a day, Humalog 20 units subcutaneous three times a day with meals, isosorbide mononitrate 60 mg p.o. b.i.d., Synthroid 88 mcg p.o. daily, Cozaar 100 mg p.o. daily, Reglan 5 mg p.o. t.i.d., perphenazine 4 mg at bedtime, Zantac 150 mg p.o. daily, Zoloft 100 mg p.o. daily, sodium bicarbonate 650 p.o. b.i.d., Aldactone 25 mg p.o. daily, and vitamin E over the counter. PHYSICAL EXAMINATION: VITAL SIGNS: Temperature 98.1, pulse 85, blood pressure 138/85, respiratory rate 16, and O2 saturation 97% on room air. GENERAL: A chronically ill-appearing female, in no evidence of distress though. HEENT: No conjunctival pallor. No scleral icterus. Nares are patent. Oropharynx is clear of obstruction. Dry mucous membranes. NECK: Trachea midline. No thyromegaly. LYMPH: No cervical lymphadenopathy. No supraclavicular lymphadenopathy. No inguinal lymphadenopathy. RESPIRATORY: Clear to auscultation at bases. No wheezes, rales, or rhonchi. Normal respiratory effort. CARDIOVASCULAR: Regular rate and rhythm. No murmurs, rubs, or gallops. No extremity edema is appreciated. ABDOMEN: Soft, nontender, nondistended. Normal bowel sounds auscultated throughout. No organomegaly. DERMATOLOGICAL: Warm and dry extremities. No pallor. No cyanosis. The patient's left foot shows some erythema, but no heat. No ulceration of significance. No purulent drainage. No fluctuance. PSYCHIATRIC: Normal affect. Good mood. Alert and oriented x3. LABORATORY DATA: White blood cell count 8.9, hemoglobin 11, hematocrit 32, platelets 266. History And Physical [address] [address] NAME: JUAN SOLIS : 67 STATUS : ADM Hemant PAT#: [id number] AGE: 51 ADM/REG DATE : 12/21/16 MR#: [id number] REPORT SERV DATE: 12/22/16 DICTATED BY: KHUSHBU MARQUEZ DATE: 12/22/16 REPORT STATUS : Draft TRANSCRIBED BY: MODL DATE: 12/22/16 Urinalysis negative for infection, but shows 5 hyaline casts, positive protein. Sodium 132, potassium 4.6, chloride 97, bicarb 28, BUN 47, creatinine 2.23, glucose 456. Liver enzymes within normal limits. ASSESSMENT AND PLAN: 1. Uncontrolled diabetes. Recent hemoglobin A1c of 14.4, 11/2016. Obtain a clinical systems educator consult. Try Levemir. Place on sliding scale insulin, premeal NovoLog, question noncompliance. 2. Acute kidney injury. Place on IV fluids. Hold spironolactone. 3. Left foot ulcer. Obtain a Wound Care consult. Check ESR and CRP. 4. Chronic diastolic congestive heart failure. KPL/MODL Khushbu Marquez M.D. / [id number] CC: Santi Chairez Jr, MD Owen F. Speer, DO Michael Reeves, M.D.
[~2016-12-21 19:58] MED LIST changes: +DURICEF PO; +LIPITOR80 MG PO
[2016-12-21 20:10] LABS: ASCORBIC ACID (UR NOT ORDER) 20 (NEG); BILIRUBIN, URINE NEGATIVE (NEG); ER URINALYSIS TAT 0 Hrs 12 Mins; KETONE, URINE NEGATIVE (NEG); LEUKOCYTE ESTERASE(NOT OR NEG (NEG); NITRITE (URINE) NEG (NEG); WBC (NOT ORDERED) (RFLEX) 1 (0-5)
[2016-12-21 20:10] LABS: BASOPHILS 0.3 %; BASOPHILS ABSOLUTE 0.03 10/3/uL (0.0-0.16); EOSINOPHILS 2.2 %; HEMATOCRIT 31.6 % (36.0-48.0); HEMOGLOBIN 10.9 g/dL (12.0-16.0); IMMATURE GRANULOCYTES 0.2 %; IMMATURE GRANULOCYTES ABSOLUTE 0.02 10/3/uL (0.0-0.11); LYMPHOCYTES ABSOLUTE 2.49 10/3/uL (0.67-4.30); MEAN CORPUSCULAR HEMOGLOB 29.1 pg (26.0-34.0); MONOCYTES 5.2 %; MONOCYTES ABSOLUTE 0.46 10/3/uL (0.21-1.20); NEUTROPHILS 64.1 %; NEUTROPHILS ABSOLUTE 5.69 10/3/uL (2.02-8.40); PLATELET COUNT 266 10/3/uL (150-400); RBC DISTRIBUTION WIDTH 13.9 % (12.0-16.0); RED CELL COUNT 3.74 10/6/uL (4.0-5.6)
[2016-12-21 20:11] LABS: ER CBC TAT 0 Hrs 05 Mins; MANUAL DIFF NO %; MEAN CORPUS HGB CONC 34.5 g/dL (32.0-36.0); MEAN CORPUSCULAR VOLUME 84.5 fL (80-100); WHITE BLOOD CELLS 8.9 10/3/uL (4.5-10.5)
[2016-12-21 20:25] LABS: CALCIUM, SERUM 9.2 MG/DL (8.5-10.4); POTASSIUM, SERUM 4.6 MMOL/L (3.5-5.3); SGOT(AST) 8 U/L (5-40); SGPT(ALT) 14 U/L (5-65); TOTAL BILIRUBIN 0.2 MG/DL (0-1.2); TOTAL PROTEIN 8.1 G/DL (6.0-8.5)
[2016-12-21 20:26] LABS: A/G RATIO 0.7 (0.7-1.9); ALBUMIN 3.3 G/DL (3.5-5.0); ALKALINE PHOSPHATASE 127 U/L (45-117); BUN (BLOOD UREA NITROGEN) 47 MG/DL (6-23); CHLORIDE, SERUM 97 MMOL/L (96-112); CO2 (CARBON DIOXIDE) 28 MMOL/L (24-34); CREATININE 2.23 MG/DL (0.55-1.02); GFR AFRICAN AMERICAN 29 ML/MIN (>=60); GFR NON AFRICAN AMERICAN 25 ML/MIN (>=60); GLOBULIN 4.8 G/DL (2.5-4.1); GLUCOSE, SERUM 456 MG/DL (60-99); SODIUM, SERUM 132 MMOL/L (135-148)
[2016-12-21] MEDS ORDERED: VASCEPA1 GM PO (22:12)
[2016-12-21] MEDS ORDERED: COZAAR100 MG PO (22:13)
[2016-12-21] MEDS ORDERED: [UNRECOGNIZED DRUG - OTHER] PO (22:13)
[2016-12-21] MEDS ORDERED: SPIRO25 PO (22:13)
[2016-12-21] MEDS ORDERED: VITC500 PO (22:14)
[2016-12-21] MEDS ORDERED: VITE PO (22:14)
[2016-12-21] MEDS ORDERED: NORCO1 TA2 PO (22:15)
[2016-12-21] MEDS ORDERED: LIOR10 PO (22:16)
[2016-12-21] MEDS ORDERED: PERPHENAZINE4 MG PO (22:16)
[2016-12-21] MEDS ORDERED: VITAMIN D1000 UNI1 PO (22:16)
[2016-12-21] MEDS ORDERED: AMIT25 PO (22:17)
[2016-12-21] MEDS ORDERED: REG5 PO (22:17)
[2016-12-21] MEDS ORDERED: CARTIA XT120 MG/24 PO (22:17)
[2016-12-21] MEDS ORDERED: NEUR300 PO (22:18)
[2016-12-21] MEDS ORDERED: ZANTAC 150 PO (22:19)
[2016-12-21] MEDS ORDERED: IMDUR60 PO (22:20)
[2016-12-21] MEDS ORDERED: ZOL50 PO (22:20)
[2016-12-21] MEDS ORDERED: HALF81 PO (22:21)
[2016-12-21] MEDS ORDERED: SYN88 PO (22:21)
[2016-12-21] MEDS ORDERED: LANTUSCART SC (22:22)
[2016-12-21] MEDS ORDERED: HUMALOG SC (22:22)
[2016-12-21] MEDS ORDERED: DURICEF PO (22:22)
[2016-12-21] MEDS ORDERED: LIPITOR80 MG PO (22:22)
[2016-12-21] MEDS ORDERED: SODBICAR10 PO (22:24)
[2016-12-22 04:40] LABS: BASOPHILS 0.3 %; BASOPHILS ABSOLUTE 0.02 10/3/uL (0.0-0.16); EOSINOPHILS 3.1 %; EOSINOPHILS ABSOLUTE 0.22 10/3/uL (0.0-0.53); HEMATOCRIT 29.5 % (36.0-48.0); HEMOGLOBIN 9.9 g/dL (12.0-16.0); IMMATURE GRANULOCYTES 0.1 %; IMMATURE GRANULOCYTES ABSOLUTE 0.01 10/3/uL (0.0-0.11); LYMPHOCYTES 36.6 %; LYMPHOCYTES ABSOLUTE 2.62 10/3/uL (0.67-4.30); MANUAL DIFF NO %; MEAN CORPUS HGB CONC 33.6 g/dL (32.0-36.0); MEAN CORPUSCULAR HEMOGLOB 28.4 pg (26.0-34.0); MEAN CORPUSCULAR VOLUME 84.5 fL (80-100); MEAN PLATELET VOLUME 10.2 fL (9.2-13.0); MONOCYTES 6.4 %; MONOCYTES ABSOLUTE 0.46 10/3/uL (0.21-1.20); NEUTROPHILS 53.5 %; NEUTROPHILS ABSOLUTE 3.83 10/3/uL (2.02-8.40); PLATELET COUNT 240 10/3/uL (150-400); RBC DISTRIBUTION WIDTH 13.9 % (12.0-16.0); RED CELL COUNT 3.49 10/6/uL (4.0-5.6); WHITE BLOOD CELLS 7.2 10/3/uL (4.5-10.5)
[2016-12-22 04:43] LABS: INTERNATIONAL NORMAL RATI 1.3 UNITS (-); PARTIAL THROMBO TIME 24.1 SEC (22.5-37.2)
[2016-12-22 04:44] LABS: PROTIME (NOT ORD) 16.2 SEC (12.0-14.5)
[2016-12-22 04:59] LABS: A/G RATIO 0.7 (0.7-1.9); ALBUMIN 2.8 G/DL (3.5-5.0); C-REACTIVE PROTEIN 4.1 MG/L (<8.0); CALCIUM, SERUM 8.9 MG/DL (8.5-10.4); CHLORIDE, SERUM 105 MMOL/L (96-112); CO2 (CARBON DIOXIDE) 25 MMOL/L (24-34); GLOBULIN 4.1 G/DL (2.5-4.1); POTASSIUM, SERUM 3.8 MMOL/L (3.5-5.3); SGOT(AST) 4 U/L (5-40); SGPT(ALT) 8 U/L (5-65); SODIUM, SERUM 138 MMOL/L (135-148); TOTAL BILIRUBIN 0.2 MG/DL (0-1.2); TOTAL PROTEIN 6.9 G/DL (6.0-8.5); TROPONIN I <0.02 NG/ML (<0.05)
[2016-12-22 05:02] LABS: ALKALINE PHOSPHATASE 90 U/L (45-117); BUN (BLOOD UREA NITROGEN) 39 MG/DL (6-23); CREATININE 1.53 MG/DL (0.55-1.02); GFR AFRICAN AMERICAN 45 ML/MIN (>=60); GFR NON AFRICAN AMERICAN 39 ML/MIN (>=60); GLUCOSE, SERUM 185 MG/DL (60-99)
[2016-12-22 06:54] LABS: SED RATE 105 MM/HR (0-20)
[2016-12-22] MEDS ORDERED: NOVOLOG SC (14:28)
== END 2016-12-22 14:54 | disposition home or self-care (01) ==
LOC: ER 19:58 → CDU1 22:08
PROVIDERS: Emergency Medicine; Internal Medicine
DX: E11.22 Type 2 diabetes mellitus with diabetic chronic kidney disease (principal); I13.0 Hypertensive heart and chronic kidney disease with heart failure and stage 1 through stage 4 chronic kidney disease, or unspecified chronic kidney disease; N17.9 Acute kidney failure, unspecified; I50.32 Chronic diastolic (congestive) heart failure; K21.9 Gastro-esophageal reflux disease without esophagitis; E78.00 Pure hypercholesterolemia, unspecified; N18.3 Chronic kidney disease, stage 3 (moderate); L97.529 Non-pressure chronic ulcer of other part of left foot with unspecified severity; E11.40 Type 2 diabetes mellitus with diabetic neuropathy, unspecified; E11.319 Type 2 diabetes mellitus with unspecified diabetic retinopathy without macular edema; E11.21 Type 2 diabetes mellitus with diabetic nephropathy; G62.9 Polyneuropathy, unspecified; D63.1 Anemia in chronic kidney disease; Z87.440 Personal history of urinary (tract) infections; Z90.49 Acquired absence of other specified parts of digestive tract; Z98.890 Other specified postprocedural states; Z79.82 Long term (current) use of aspirin; Z79.899 Other long term (current) drug therapy
CPT/HCPCS: 80053; 81001; 82962; 83735; 83880; 84443; 84484; 85025; 85610; 85652; 85730; 86140; 96361; 96372; 96374; 96375; 99285; A9270-GY; G0378

== ENCOUNTER 2017-04-14 12:15 | Inpatient (IN) | payer MEDICARE, OTHER ==
[~2017-04-14] VITALS: Ht 170.2 cm; Wt 120.7 kg
--- NOTE | ~2017-04-14 | HP ---
History And Physical [facility] [address] [place]. [address] NAME: JUAN SOLIS : 67 STATUS : ADM Hemant PAT#: [id number] AGE: 51 ADM/REG DATE : 04/14/17 MR#: [id number] REPORT SERV DATE: 04/14/17 DICTATED BY: BETO ARMSTRONG DATE: 04/14/17 REPORT STATUS : Draft TRANSCRIBED BY: DAMARI DATE: 04/14/17 DATE OF ADMISSION: 04/14/2017 CHIEF COMPLAINT: Hyperglycemia. HISTORY OF PRESENT ILLNESS: The patient is a 51-year-old white female, well known to the Hospitalist Service. She has a longstanding history of diabetes mellitus. Her A1c was last measured in November at 14.4. She sees Dr. Duncan. She is supposed to be taking 50 units of long-acting insulin plus a fairly significant dose of short-acting insulin at mealtime. The patient reports her sugar has been up, but was at the office in the 500 to 700 range; however, she does not have any strips, so she has not checked her sugars recently. She actually has not taken her insulin either. After contacting Vangie at 153, we discovered that she has not filled her insulin prescription since December and she has actually filled none of her prescriptions since December except for the linezolid that she is taking for her infection in her feet. She is quite hypertensive today in the ER and her sugar is in the 700 range. Her affect is very flat. She answers all questions with one answer and really does not provide any history. She has no other complaints today. She just states she came over because they told her to. She denies pain. She does not admit to depression even though I questioned her about it. Her mother is at bedside. She thinks she is depressed. She had a transmetatarsal amputation on the left back in 2015, she still has a wound there. Now, she has a wound also on her right first metatarsal head that she has been seeing Wound Care for and was placed on linezolid. Her wounds have failed to really resolve, but I suspect all of this has to do with the fact that her diabetes is uncontrolled. She has no other complaints today. PAST MEDICAL HISTORY: 1. Diabetes mellitus. 2. Diabetic neuropathy. 3. Diabetic retinopathy. 4. Diabetic nephropathy. 5. Blindness. 6. Diastolic heart failure. 7. Anemia, chronic. 8. Hypertension. 9. Stage 3 CKD, baseline creatinine 1.3 to 1.5. 10.GERD. 11.Morbid obesity. 12.Elevated cholesterol. 13.Osteomyelitis of the feet with diabetic foot ulcer, cellulitis, and a transmetatarsal amputation on the left and big toe amputation on the right. 14.Hyperlipidemia. 15.MRSA, and Pseudomonas. 16.Fatty liver with splenomegaly. 17.Hilar and mediastinal lymphadenopathy. 18.Recurrent urinary tract infections. History And Physical [address] [address] NAME: JUAN SOLIS : 67 STATUS : ADM Hemant PAT#: [id number] AGE: 51 ADM/REG DATE : 04/14/17 MR#: [id number] REPORT SERV DATE: 04/14/17 DICTATED BY: BETO ARMSTRONG DATE: 04/14/17 REPORT STATUS : Draft TRANSCRIBED BY: DAMARI DATE: 04/14/17 SURGICAL HISTORY: She had a left transmetatarsal amputation, right great toe amputation, cholecystectomy, right shoulder surgery, , bilateral carpal tunnels. ALLERGIES: NO KNOWN DRUG ALLERGIES. SOCIAL HISTORY: She lives with her mom. She has a daughter who is grown. She is on disability. She denies tobacco or alcohol use. HOME MEDICATIONS: Reviewed. FAMILY HISTORY: Positive for diabetes and hypertension. REVIEW OF SYSTEMS: Full 10-point review of systems obtained. Pertinent positives are mentioned in the HPI. LABORATORY AND X-RAY: CBC looks relatively normal. Her hemoglobin is at baseline 11.4 and hematocrit of 34. She has no white count. CMP; sodium 124, potassium 4.8, chloride 91, CO2 of 22, BUN and creatinine 33 and 2.22, glucose 766, albumin 2.8. Small acetone is noted. Urinalysis shows trace ketones, but no real significant whites. Corrected sodium is 134, anion gap is 11. ASSESSMENT/PLAN: 1. Hyperosmolar hyperglycemic state. No convincing acidosis with a normal anion gap. We did not get a gas on her. She has no real changes in mental status. She is noncompliant, not taking her insulin, which is the cause for her hyperosmolar state today. I am going to hydrate her with 2 L normal saline initially, then place her on half normal at 250. We will start to give her insulin bolus as well as an insulin drip with q.1 hour fingerstick blood sugars. I am going to base it on her weight. Once her sugar gets below 300, we will drop down her insulin drip and also change her fluids to D5 half-normal saline at 150. We will check her A1c. I am going to have the adaptive physical educator see her. I wonder if some of her depression is contributing to her noncompliance. 2. Hypertension, noncompliant, not taking medications. I have given her some medications in the ER and written some antihypertensives for her to include Norvasc 5 and p.r.n. clonidine. 3. Morbid obesity. Desperately needs weight loss. 4. Acute on chronic kidney disease likely secondary to volume depletion secondary to not taking her insulin and having profound hyperglycemia with fluid loss in her urine. I am going to hydrate her overnight and correct her hyperglycemia. 5. Possible underlying depression. She was on an antipsychotic at bedtime, but there is no mention of mental illness in her chart. I suspect she is very depressed. I am going to resume her Zoloft and the antipsychotic at bedtime that she was on previously, but has not filled since December. I think this may need to be addressed as far as her current move. We may need to have Psych see this day. 6. History of diastolic congestive heart failure. 7. Anemia, stable, chronic. 8. Gastroesophageal reflux disease. History And Physical [address] [address] NAME: JUAN SOLIS : 67 STATUS : ADM Hemant PAT#: [id number] AGE: 51 ADM/REG DATE : 04/14/17 MR#: [id number] REPORT SERV DATE: 04/14/17 DICTATED BY: BETO ARMSTRONG DATE: 04/14/17 REPORT STATUS : Draft TRANSCRIBED BY: DAMARI DATE: 04/14/17 9. Recurrent diabetic foot infections with continued ulceration on both feet, currently on linezolid with failure to heal likely secondary to uncontrolled diabetes mellitus. She has pulses in her feet. We will have Wound Care see her in consultation. Continue her linezolid. 10.Fatty liver. 11.Noncompliance. I questioned the patient over and over regarding her noncompliance reasons, and she really cannot come up with any good explanation as to why she is not taking her medications. DISPOSITION: Pending above. ZULEIKA/DAMARI Beto Armstrong M.D. / [id number] CC: Andrew Narayan DO Michael Reeves, M.D. John McCarley, M.D.
--- NOTE | ~2017-04-14 | DS ---
Discharge Summary [place] [address] [place]. [address] NAME: JUAN SOLIS : 67 STATUS : DIS IN PAT#: [id number] AGE: 51 ADM/REG DATE : 04/14/17 MR#: [id number] REPORT SERV DATE: 04/19/17 DICTATED BY: JASMYN TRAN II DATE: 04/18/17 REPORT STATUS : Draft TRANSCRIBED BY: MODL DATE: 04/18/17 ADMISSION DATE: 04/14/2017 DISCHARGE DATE: 04/18/2017 DISCHARGE DIAGNOSES: 1. Type 2 diabetes mellitus, uncontrolled. 2. Chronic bilateral diabetic foot ulcers. 3. Acute kidney injury, resolved. 4. Chronic kidney disease, stage 3. 5. Morbid obesity. 6. Diastolic heart failure, chronic. 7. Medical noncompliance. 8. Depression. 9. Hypothyroidism. CONSULTATIONS: 1. In-house breastfeeding educator. 2. In-house Case Management. PERTINENT TESTS AND PROCEDURES: 1. Urinalysis, specimen obtained 04/14/2017, result negative. 2. A1c obtained 04/14/2017, reported to be 13.8. 3. Blood cultures x2 sites, specimen collected 04/14/2017, preliminary results, no growth at one day. HOSPITAL COURSE: Please refer to history and physical dated 04/14/[address] Parul Armstrong for complete details pertaining to the patient's initial presentation upon admission and health history. Briefly, the patient is a 51-year-old female with a past medical history significant for uncontrolled type 2 diabetes mellitus with complications to include diabetic neuropathy, retinopathy, and nephropathy; diastolic heart failure; chronic anemia; hypertension; stage 3 chronic kidney disease; morbid obesity; elevated cholesterol; chronic bilateral diabetic foot ulcers with history of osteomyelitis and amputation; and recurrent urinary tract infections. The patient presented to the emergency room on 04/14/2017 for evaluation and treatment of hyperglycemia. Initial diagnostic workup included lab work which reported elevated BUN and creatinine of 33 and 2.22, glucose 766, and bicarb of 22. The patient was admitted to the hospital for further evaluation and treatment of uncontrolled type 2 diabetes/hyperosmolar hyperglycemic state, hypertension, and acute on chronic kidney disease. Noteworthy to mention that the patient's pharmacy verified that she has not filled her home medications to include insulin since 12/2016. Case Management was consulted for medication Discharge Summary [place] [address] [place]. [address] NAME: JUAN SLOIS : 67 STATUS : DIS IN PAT#: [id number] AGE: 51 ADM/REG DATE : 04/14/17 MR#: [id number] REPORT SERV DATE: 04/19/17 DICTATED BY: JASMYN TRAN II DATE: 04/18/17 REPORT STATUS : Draft TRANSCRIBED BY: DAMARI DATE: 04/18/17 assistance. Upon admission, the patient was placed on insulin drip and IV fluids. Insulin drip was continued through 04/16/2017 and the patient was successfully transitioned to Levemir and NovoLog. Home dose of insulin included Levemir 50 units subcutaneous twice daily and Humalog 20 units scheduled before meals. The patient was initially placed on Levemir 60 units subcutaneous twice daily prior to discontinuation of insulin drip. The patient was hypoglycemic this a.m. with a blood glucose in the high 50s. Levemir was decreased back to home dose of 50 units subcutaneous twice daily. Continue Humalog 20 units subcutaneous before meals as scheduled and Humalog sliding scale insulin level 1 before meals and at bedtime. 1. Type 2 diabetes, uncontrolled. The patient's A1c is 13.8. No home treatment to include blood glucose checks and use of insulin since 12/2016. educator senior clinical consulted. Handouts were given and reviewed for diabetes to include monitoring of blood glucose levels hyper/hypoglycemia, same-day management, and the adjuvant timing of basal and bolus insulin. The patient will follow up with Dr. Duncan, print press operator, on 04/24/2017 at 3:15 for further evaluation and management of uncontrolled type 2 diabetes. The patient was provided prescriptions for Lantus, Humalog, glucometer, test strips, and lancets prior to discharge. Case Management verified co-pay was within the patient's ability to obtain medications upon discharge today. 2. Chronic diabetic foot ulcers. The patient is status post left transmetatarsal amputation in 2015 and right great toe amputation in 2014. The patient has been followed by the [facility] for months. The patient will follow up with [facility] on 04/26/2017 at 12:45. RN spoke with [facility] today and did verify that the patient is nonweightbearing status secondary to bilateral foot ulcers. The patient has all durable medical equipments needed at home. 3. Acute kidney injury on chronic kidney disease, stage 3. The patient's baseline creatinine runs between 1.3 and 1.5. Creatinine has now returned to baseline at 1.21 on day of discharge. 4. Morbid obesity. The patient's BMI is 41.2. The patient has been counseled on benefits of weight reduction in the setting of type 2 diabetes, uncontrolled, chronic kidney disease, and hypertension. 5. Chronic diastolic heart failure. No acute signs or symptoms of exacerbation during this admission. Dr. Islas's Cardiology office will contact the patient when next followup appointment is due. 6. Depression? Noted on 06/2015 history and physical. On admission, it was noted in H and P that the patient appeared very depressed. The patient's Zoloft and antipsychotic medications that the patient has not filled since December were restarted during this admission. These medication should be continued upon discharge and the patient to follow up with primary care physician. 7. Medical noncompliance. Per the patient, this is secondary to financial issues. Case Management has been consulted for home health care. Social Work at discharge. DISCHARGE CONDITION: At the time of discharge, the patient is hemodynamically stable. DISCHARGE DIET: ADA, 1800-calorie diet. Discharge Summary [address] [address] NAME: JUAN SOLIS : 67 STATUS : DIS IN [facility]#: [id number] AGE: 51 ADM/REG DATE : 04/14/17 MR#: [id number] REPORT SERV DATE: 04/19/17 DICTATED BY: JASMYN TRAN II DATE: 04/18/17 REPORT STATUS : Draft TRANSCRIBED BY: DAMARI DATE: 04/18/17 DISCHARGE MEDICATIONS: 1. Aspirin 81 mg tablet p.o. daily. 2. Vitamin D 1000 units p.o. daily. 3. Neurontin 300 mg tablet p.o. three times daily. 4. Lantus 50 units subcutaneous twice daily. 5. Imdur 60 mg tablet p.o. twice daily. 6. Synthroid 88 mcg p.o. daily. 7. Zyvox 600 mg tablet p.o. b.i.d. x14 days. Start date 04/06/2017, last dose 04/19/2017. 8. Zyrtec 10 mg tablet p.o. daily. 9. Reglan 5 mg tablet p.o. three times daily. 10.Perphenazine 4 mg tablet p.o. daily at bedtime. 11.Zoloft 50 mg tablet p.o. daily. This medication should be held until 04/21/2017 due to contraindication while on Zyvox therapy. 12.Elavil 25 mg tablet p.o. at bedtime. 13.Tylenol 650 mg p.o. every four hours as needed. 14.Baclofen 10 mg tablet three times daily as needed. 15.Humalog 20 units subcutaneous three times daily before meals. 16.Cozaar 100 mg tablet p.o. every night. 17.Vascepa 1 g tablet, take 2 g p.o. twice daily. 18.Aldactone 25 mg tablet p.o. daily. 19.Vitamin E 400 units p.o. daily. 20.Vitamin C 500 mg p.o. daily. 21.Cartia XT 120 mg tablet p.o. twice daily. DISCHARGE INSTRUCTIONS: 1. Follow up with [facility], 04/26/2017, at 12:45 p.m. 2. Follow up with Dr. Duncan, print press operator, 04/24/2017 at 3:15 p.m. 3. Follow up with Dr. Pastor, Nephrology, 09/01/2017 at 9 a.m. 4. Follow up with Dr. Islas, Cardiology, as scheduled. Office to contact the patient to schedule appointment. 5. Follow up with Dr. Reza, primary care physician, as needed. The patient was instructed on the importance of a structured followthrough with routine home medications. The patient was educated on the risk associated with medical noncompliance in the setting of uncontrolled diabetes, hypertension, and kidney disease. Home health care has been ordered for medication management and Social Work evaluation upon discharge. JA/DAMARI COLLEEN Maki Jasmyn Tran II, MD Discharge Summary [address] [address] NAME: JUAN SOLIS : 67 STATUS : DIS IN PAT#: [id number] AGE: 51 ADM/REG DATE : 04/14/17 MR#: [id number] REPORT SERV DATE: 04/19/17 DICTATED BY: JASMYN TRAN II DATE: 04/18/17 REPORT STATUS : Draft TRANSCRIBED BY: MODL DATE: 04/18/17 / [id number] CC: MD Joo Browning II, DO John McCarley, M.D. Andrew H Fowler, M.D. Michael Reeves, M.D.
[~2017-04-14 12:15] MED LIST changes: +CARTIA XT120 MG/24 PO; +NORCO1 TA2 PO; +REG5 PO; +SODBICAR10 PO; +VITAMIN D1000 UNI1 PO; +[UNRECOGNIZED DRUG - OTHER] PO
[2017-04-14 13:06] LABS: BASOPHILS 0.3 %; BASOPHILS ABSOLUTE 0.03 10/3/uL (0.0-0.16); EOSINOPHILS 2.1 %; EOSINOPHILS ABSOLUTE 0.18 10/3/uL (0.0-0.53); HEMOGLOBIN 11.4 g/dL (12.0-16.0); IMMATURE GRANULOCYTES 0.1 %; IMMATURE GRANULOCYTES ABSOLUTE 0.01 10/3/uL (0.0-0.11); LYMPHOCYTES 21.2 %; LYMPHOCYTES ABSOLUTE 1.82 10/3/uL (0.67-4.30); MEAN CORPUS HGB CONC 33.5 g/dL (32.0-36.0); MEAN CORPUSCULAR HEMOGLOB 28.9 pg (26.0-34.0); MEAN CORPUSCULAR VOLUME 86.3 fL (80-100); MEAN PLATELET VOLUME 10.7 fL (9.2-13.0); MONOCYTES 4.9 %; MONOCYTES ABSOLUTE 0.42 10/3/uL (0.21-1.20); NEUTROPHILS 71.4 %; NEUTROPHILS ABSOLUTE 6.13 10/3/uL (2.02-8.40); PLATELET COUNT 275 10/3/uL (150-400); RBC DISTRIBUTION WIDTH 12.8 % (12.0-16.0); RED CELL COUNT 3.94 10/6/uL (4.0-5.6); WHITE BLOOD CELLS 8.6 10/3/uL (4.5-10.5)
[2017-04-14 13:07] LABS: MANUAL DIFF NO %
[2017-04-14 13:21] LABS: A/G RATIO 0.6 (0.7-1.9); ALBUMIN 2.8 G/DL (3.5-5.0); ALKALINE PHOSPHATASE 101 U/L (45-117); CALCIUM, SERUM 8.7 MG/DL (8.5-10.4); CO2 (CARBON DIOXIDE) 22 MMOL/L (24-34); GLOBULIN 4.7 G/DL (2.5-4.1); SGOT(AST) 10 U/L (5-40); SGPT(ALT) 13 U/L (5-65); TOTAL PROTEIN 7.5 G/DL (6.0-8.5)
[2017-04-14 13:22] LABS: ACETONE SMALL; BUN (BLOOD UREA NITROGEN) 33 MG/DL (6-23); CHLORIDE, SERUM 91 MMOL/L (96-112); CREATININE 2.22 MG/DL (0.55-1.02); GFR AFRICAN AMERICAN 29 ML/MIN (>=60); GFR NON AFRICAN AMERICAN 25 ML/MIN (>=60); GLUCOSE, SERUM 766 MG/DL (60-99); POTASSIUM, SERUM 4.8 MMOL/L (3.5-5.3); SODIUM, SERUM 124 MMOL/L (135-148); TOTAL BILIRUBIN 0.8 MG/DL (0-1.2)
[2017-04-14 13:36] LABS: ASCORBIC ACID (UR NOT ORDER) NEG (NEG); BILIRUBIN, URINE NEGATIVE (NEG); ER URINALYSIS TAT 0 Hrs 13 Mins; KETONE, URINE TRACE MG/DL (NEG); LEUKOCYTE ESTERASE(NOT OR NEG (NEG); NITRITE (URINE) NEG (NEG); WBC (NOT ORDERED) (RFLEX) 4 (0-5)
[2017-04-14] MEDS ORDERED: ZYRTEC ALLGY10 MG PO (14:47)
[2017-04-14] MEDS ORDERED: ZYVOXPO PO (14:50)
[2017-04-14 17:34] LABS: BUN (BLOOD UREA NITROGEN) 35 MG/DL (6-23); CALCIUM, SERUM 8.5 MG/DL (8.5-10.4); CHLORIDE, SERUM 92 MMOL/L (96-112); CO2 (CARBON DIOXIDE) 23 MMOL/L (24-34); CREATININE 2.03 MG/DL (0.55-1.02); GFR AFRICAN AMERICAN 32 ML/MIN (>=60); GFR NON AFRICAN AMERICAN 28 ML/MIN (>=60); SODIUM, SERUM 124 MMOL/L (135-148)
[2017-04-14 17:36] LABS: GLUCOSE, SERUM 667 MG/DL (60-99)
[2017-04-14 21:26] LABS: BUN (BLOOD UREA NITROGEN) 33 MG/DL (6-23); CALCIUM, SERUM 8.6 MG/DL (8.5-10.4); CHLORIDE, SERUM 100 MMOL/L (96-112); CO2 (CARBON DIOXIDE) 22 MMOL/L (24-34); CREATININE 1.85 MG/DL (0.55-1.02); GFR AFRICAN AMERICAN 36 ML/MIN (>=60); GFR NON AFRICAN AMERICAN 31 ML/MIN (>=60)
[2017-04-14 21:30] LABS: GLUCOSE, SERUM 229 MG/DL (60-99); SODIUM, SERUM 133 MMOL/L (135-148)
[2017-04-15 00:29] LABS: CALCIUM, SERUM 8.3 MG/DL (8.5-10.4); CHLORIDE, SERUM 105 MMOL/L (96-112); CO2 (CARBON DIOXIDE) 21 MMOL/L (24-34); CREATININE 1.79 MG/DL (0.55-1.02); GFR AFRICAN AMERICAN 38 ML/MIN (>=60); GFR NON AFRICAN AMERICAN 32 ML/MIN (>=60); POTASSIUM, SERUM 4.3 MMOL/L (3.5-5.3); SODIUM, SERUM 137 MMOL/L (135-148)
[2017-04-15 00:31] LABS: BUN (BLOOD UREA NITROGEN) 37 MG/DL (6-23); GLUCOSE, SERUM 148 MG/DL (60-99)
[2017-04-15 09:27] LABS: BASOPHILS 0.5 %; BASOPHILS ABSOLUTE 0.04 10/3/uL (0.0-0.16); EOSINOPHILS 2.7 %; EOSINOPHILS ABSOLUTE 0.23 10/3/uL (0.0-0.53); HEMATOCRIT 34.6 % (36.0-48.0); HEMOGLOBIN 11.9 g/dL (12.0-16.0); IMMATURE GRANULOCYTES 0.2 %; IMMATURE GRANULOCYTES ABSOLUTE 0.02 10/3/uL (0.0-0.11); LYMPHOCYTES 39.3 %; MEAN CORPUS HGB CONC 34.4 g/dL (32.0-36.0); MEAN CORPUSCULAR HEMOGLOB 29.1 pg (26.0-34.0); MEAN CORPUSCULAR VOLUME 84.6 fL (80-100); MEAN PLATELET VOLUME 10.8 fL (9.2-13.0); MONOCYTES 5.7 %; MONOCYTES ABSOLUTE 0.48 10/3/uL (0.21-1.20); NEUTROPHILS 51.6 %; NEUTROPHILS ABSOLUTE 4.33 10/3/uL (2.02-8.40); PLATELET COUNT 229 10/3/uL (150-400); RBC DISTRIBUTION WIDTH 12.7 % (12.0-16.0); RED CELL COUNT 4.09 10/6/uL (4.0-5.6); WHITE BLOOD CELLS 8.4 10/3/uL (4.5-10.5)
[2017-04-15 09:31] LABS: MANUAL DIFF NO %
[2017-04-15 09:41] LABS: CALCIUM, SERUM 8.5 MG/DL (8.5-10.4); CHLORIDE, SERUM 106 MMOL/L (96-112); CO2 (CARBON DIOXIDE) 22 MMOL/L (24-34); CREATININE 1.56 MG/DL (0.55-1.02); GFR AFRICAN AMERICAN 44 ML/MIN (>=60); GFR NON AFRICAN AMERICAN 38 ML/MIN (>=60); POTASSIUM, SERUM 4.1 MMOL/L (3.5-5.3); SODIUM, SERUM 138 MMOL/L (135-148)
[2017-04-15 09:42] LABS: BUN (BLOOD UREA NITROGEN) 31 MG/DL (6-23); GLUCOSE, SERUM 203 MG/DL (60-99)
[2017-04-15 21:35] LABS: CALCIUM, SERUM 8.4 MG/DL (8.5-10.4); CHLORIDE, SERUM 107 MMOL/L (96-112); CO2 (CARBON DIOXIDE) 20 MMOL/L (24-34); GFR AFRICAN AMERICAN 51 ML/MIN (>=60); GFR NON AFRICAN AMERICAN 44 ML/MIN (>=60); POTASSIUM, SERUM 4.1 MMOL/L (3.5-5.3); SODIUM, SERUM 137 MMOL/L (135-148)
[2017-04-15 21:36] LABS: BUN (BLOOD UREA NITROGEN) 23 MG/DL (6-23); GLUCOSE, SERUM 265 MG/DL (60-99)
[2017-04-16 06:58] LABS: BASOPHILS 0.3 %; BASOPHILS ABSOLUTE 0.02 10/3/uL (0.0-0.16); EOSINOPHILS 4.3 %; EOSINOPHILS ABSOLUTE 0.25 10/3/uL (0.0-0.53); HEMOGLOBIN 10.2 g/dL (12.0-16.0); IMMATURE GRANULOCYTES 0.2 %; IMMATURE GRANULOCYTES ABSOLUTE 0.01 10/3/uL (0.0-0.11); LYMPHOCYTES 37.1 %; LYMPHOCYTES ABSOLUTE 2.14 10/3/uL (0.67-4.30); MEAN CORPUSCULAR HEMOGLOB 28.6 pg (26.0-34.0); MEAN CORPUSCULAR VOLUME 86.6 fL (80-100); MONOCYTES 5.7 %; MONOCYTES ABSOLUTE 0.33 10/3/uL (0.21-1.20); NEUTROPHILS 52.4 %; NEUTROPHILS ABSOLUTE 3.02 10/3/uL (2.02-8.40); PLATELET COUNT 231 10/3/uL (150-400); RBC DISTRIBUTION WIDTH 13.2 % (12.0-16.0); RED CELL COUNT 3.57 10/6/uL (4.0-5.6); WHITE BLOOD CELLS 5.8 10/3/uL (4.5-10.5)
[2017-04-16 07:03] LABS: HEMATOCRIT 30.9 % (36.0-48.0); MANUAL DIFF NO %
[2017-04-16 07:11] LABS: CALCIUM, SERUM 8.6 MG/DL (8.5-10.4); CHLORIDE, SERUM 108 MMOL/L (96-112); CO2 (CARBON DIOXIDE) 23 MMOL/L (24-34); CREATININE 1.28 MG/DL (0.55-1.02); GFR AFRICAN AMERICAN 56 ML/MIN (>=60); GFR NON AFRICAN AMERICAN 49 ML/MIN (>=60); SODIUM, SERUM 138 MMOL/L (135-148)
[2017-04-16 07:12] LABS: BUN (BLOOD UREA NITROGEN) 19 MG/DL (6-23); GLUCOSE, SERUM 164 MG/DL (60-99)
[2017-04-17 06:30] LABS: ALBUMIN 2.2 G/DL (3.5-5.0); BUN (BLOOD UREA NITROGEN) 17 MG/DL (6-23); CALCIUM, SERUM 8.7 MG/DL (8.5-10.4); CHLORIDE, SERUM 111 MMOL/L (96-112); CO2 (CARBON DIOXIDE) 23 MMOL/L (24-34); CREATININE 1.21 MG/DL (0.55-1.02); GFR AFRICAN AMERICAN 60 ML/MIN (>=60); GFR NON AFRICAN AMERICAN 52 ML/MIN (>=60); GLUCOSE, SERUM 79 MG/DL (60-99); PHOSPHORUS, SERUM 2.8 MG/DL (2.5-4.5); POTASSIUM, SERUM 4.2 MMOL/L (3.5-5.3); SODIUM, SERUM 141 MMOL/L (135-148)
[2017-04-18 06:50] LABS: ALBUMIN 2.2 G/DL (3.5-5.0); BUN (BLOOD UREA NITROGEN) 18 MG/DL (6-23); CALCIUM, SERUM 8.7 MG/DL (8.5-10.4); CHLORIDE, SERUM 108 MMOL/L (96-112); CO2 (CARBON DIOXIDE) 20 MMOL/L (24-34); CREATININE 1.27 MG/DL (0.55-1.02); GFR AFRICAN AMERICAN 57 ML/MIN (>=60); GFR NON AFRICAN AMERICAN 49 ML/MIN (>=60); PHOSPHORUS, SERUM 3.1 MG/DL (2.5-4.5); POTASSIUM, SERUM 4.4 MMOL/L (3.5-5.3); SODIUM, SERUM 139 MMOL/L (135-148)
[2017-04-18 06:53] LABS: GLUCOSE, SERUM 154 MG/DL (60-99)
[2017-04-18] MEDS ORDERED: T PO (17:14)
== END 2017-04-18 17:59 | disposition home health service (06) | DRG 638 ==
LOC: ER 12:15 → 4EA 14:13
PROVIDERS: Internal Medicine; Nurse Practitioner Adult Health; Physician Assistant
DX: E11.00 Type 2 diabetes mellitus with hyperosmolarity without nonketotic hyperglycemic-hyperosmolar coma (NKHHC) (principal); I13.0 Hypertensive heart and chronic kidney disease with heart failure and stage 1 through stage 4 chronic kidney disease, or unspecified chronic kidney disease; N17.9 Acute kidney failure, unspecified; I50.32 Chronic diastolic (congestive) heart failure; E11.21 Type 2 diabetes mellitus with diabetic nephropathy; E11.621 Type 2 diabetes mellitus with foot ulcer; N18.3 Chronic kidney disease, stage 3 (moderate); Z68.41 Body mass index [BMI] 40.0-44.9, adult; E11.42 Type 2 diabetes mellitus with diabetic polyneuropathy; E11.319 Type 2 diabetes mellitus with unspecified diabetic retinopathy without macular edema; E11.65 Type 2 diabetes mellitus with hyperglycemia; H54.0 Blindness, both eyes; E11.22 Type 2 diabetes mellitus with diabetic chronic kidney disease; D63.1 Anemia in chronic kidney disease; E66.01 Morbid (severe) obesity due to excess calories; K21.9 Gastro-esophageal reflux disease without esophagitis; L97.519 Non-pressure chronic ulcer of other part of right foot with unspecified severity; L97.529 Non-pressure chronic ulcer of other part of left foot with unspecified severity; E86.9 Volume depletion, unspecified; K76.0 Fatty (change of) liver, not elsewhere classified; E78.5 Hyperlipidemia, unspecified; E03.9 Hypothyroidism, unspecified; F32.9 Major depressive disorder, single episode, unspecified; Z79.4 Long term (current) use of insulin; Z91.14 Patient's other noncompliance with medication regimen; Z89.411 Acquired absence of right great toe; Z86.14 Personal history of Methicillin resistant Staphylococcus aureus infection; Z87.440 Personal history of urinary (tract) infections; Z89.432 Acquired absence of left foot
CPT/HCPCS: 80048; 80053; 80069; 81001; 82009; 82947; 82962; 83036; 85025; 87040; 93005; 99285; A9270-GY